=== PATIENT | female | born 1960 | race Caucasian/White ===

== ENCOUNTER 2016-08-16 09:16 | Emergency (ER) | payer OTHER ==
[~2016-08-16] VITALS: Ht 167.6 cm; Wt 88.0 kg
[~2016-08-16 09:16] MED LIST: ALBU18HF IH; AMOX1TAB67 PO; AZIT250T94 PO; ENAL5TAB PO; HYD25 PO; OMEP20CA16 PO
[2016-08-16 09:23] VITALS: Ht 167.6 cm; Wt 88.0 kg
--- NOTE | 2016-08-16 09:58 | ERD ---
ER Documentation Chief Complaint Date/Time DATE: 08/16/16 TIME: 09:56 Chief Complaint Complains of a sore throat x 3 days HPI Patient is a 56-year-old female who presents to the ED with back pain, sore throat and cough for the last 3 days. Denies fever or chills. States that her cough is dry and nonproductive. Denies night sweats or hemoptysis. Denies history of asthma. Denies headache or dizziness or neck pain or neck stiffness. Denies abdominal pain, nausea, vomiting or diarrhea. States that her back pain has been on and off for the last month. Denies leg pain or leg swelling. Denies shortness of breath or difficulty breathing. Has not taken any medication for her symptoms. Denies recent travel or recent surgeries. ROS All systems reviewed and are negative except as per history of present illness. Medications Home Meds Active Scripts Acetaminophen* (Tylophen*) 500 Mg Capsule, 1 CAP PO Q6H Y for PAIN AND OR ELEVATED TEMP, #20 CAP Prov:JORDAN MILLER PA-C 08/16/16 Amoxicillin/Potassium Clav (Amox-Clav 875-125 mg Tablet) 875-125 mg Tab, 1 TAB PO BID for 7 Days, #14 TAB Prov:JORADN MILLER PA-C 08/16/16 Amoxicillin-Clavulanate K* (Augmentin*) 500 Mg Tab, 500 MG PO BID for 7 Days, TAB Prov:DALTON STEPHENSON NP 05/15/15 Azithromycin* (Zithromax*) 250 Mg Tablet, 250 MG PO DAILY for 4 Days, TAB Prov:JAMAAL CASAREZ MD 02/07/15 Reported Medications Albuterol Sulfate* (Ventolin HFA*) 18 Gm Hfa.aer.ad, 2 PUFF IH Q4H Y for WHEEZING AND RESP DISTRESS, EA 02/07/15 Omeprazole* (Omeprazole*) 20 Mg Capsule.dr, 20 MG PO DAILY, CAP 02/07/15 Enalapril Maleate* (Enalapril Maleate*) 5 Mg Tablet, 5 MG PO BID, TAB 10/07/13 Hydrochlorothiazide* (Hydrochlorothiazide*) 25 Mg Tab, 25 MG PO DAILY, TAB 10/07/13 Allergies Allergies: Coded Allergies: No Known Allergy (Unverified , 05/15/15) PMhx/Soc History of Surgery: No Anesthesia Reaction: No Hx Neurological Disorder: No Hx Respiratory Disorders: No Hx Cardiac Disorders: No Hx Psychiatric Problems: No Hx Miscellaneous Medical Probl: Yes (pneumonia) Hx Alcohol Use: No Hx Substance Use: No Hx Tobacco Use: No FmHx Family History: No coronary disease, No diabetes, No other Physical Exam Vitals Vital Signs Date Time Temp Pulse Resp B/P Pulse Ox O2 Delivery O2 Flow Rate FiO2 08/16/16 10:56 98.2 78 20 136/75 97 Room Air 08/16/16 09:23 98.1 83 20 132/83 95 Physical Exam GENERAL: Well-developed, well-nourished female. Appears in no acute distress. HEAD: Normocephalic, atraumatic. EYES: Pupils are equally reactive bilaterally. EOMs grossly intact. No conjunctival erythema. ENT: Moist mucous membranes. No uvula deviation. No kissing tonsils. No exudates. NECK: Supple. No lymphadenopathy or thyromegaly. No meningismus. negative kernig. negative brudinski. LUNG: Clear to auscultation bilaterally. No rhonchi, wheezing, rales or coarse breath sounds. No retractions or nasal flaring. No stridor. Speaking in full sentences. HEART: Regular rate and rhythm. No murmurs, rubs or gallops. ABDOMEN: No scars, ecchymosis or rashes noted. Soft, nontender, and nondistended. Positive bowel sounds in all four quadrants. No rebound tenderness , no guarding. (-) McBurneys point tenderness. No CVA tenderness. BACK: No midline tenderness. Extremities: Equal pulses bilaterally. No peripheral clubbing, cyanosis or edema. No unilateral leg swelling. NEUROLOGIC: Alert and oriented. Moving all four extremities. 5/5 strength in all extremities. Normal speech. Steady gait. SKIN: Normal color. Warm and dry. No rashes or lesions. Capillary refill < 2 seconds Procedures/MDM ER COURSE: I kept the patient and/or family informed of laboratory and diagnostic imaging results throughout the emergency room course. IMAGING STUDIES [place] [id number] Radiology Main Line: [phone] DIAGNOSTIC IMAGING REPORT Patient: ROMINA DAVILA : 1960 Age: 56 Sex: F MR #: [id number] DOS: 08/16/16 0947 Ordering MD: JORDAN MILLER PA-C Location: [facility] Room/Bed: PROCEDURE: XR Chest. CLINICAL INDICATION: chest pain, cough TECHNIQUE: Single frontal view of the chest was obtained COMPARISON: 05/15/2015 FINDINGS: The heart and mediastinum are within normal limits. There is a persistent right lower lobe infiltrate. There is a small left upper lobe calcified granuloma. There is no pleural effusion or pneumothorax. RPTAT: AA IMPRESSION: Persistent and slightly worsening right lower lobe infiltrate. Since this has been present for at least 3 months, further evaluation with a CT is recommended to rule out underlying mass. .Tejas Tapia MD, MD Date Time Electronically viewed and signed by .Tejas Tapia MD, MD on 08/16/2016 10: 21 .S/ CC: JORDAN MILLER PA-C MEDICAL DECISION MAKING: This is a 56-year-old female who presents with cough, sore throat and back pain. Vital signs were reviewed. Patient is afebrile. Patient is not hypoxic. Patient is not toxic or ill-appearing. X-ray is read by radiologist shows pneumonia. However no imaging study was done 3 months prior and no x-ray to compare with. However her x-ray was done 1 year ago. At this time patient can be treated outpatientLY and to follow-up with her specialist that she already has for further evaluation such as CT scan. I consulted with Dr. Casarez regarding this patient who stated that no other imaging studies is necessary at this time. I explained to patient that she should continue following up with her specialist for further evaluation. Patient does not show signs of respiratory distress. Patient speaking in full sentences at this time patient does not need to be admitted. Low suspicion for PE, pneumothorax, ACS, epiglottitis, obstruction, TB, pertussis, meningitis, sepsis. Low suspicion for ACS, PE, AAA, dissection, DVT DISCHARGE: At this time, patient is stable for discharge and outpatient management with no new complaints during the ER course. Patient was sent home with Augmentin and a copy of imaging report and Tylenol. Patient will be discharged home with instructions to recheck for new or worsening symptoms such as fever, nausea, weakness, LOC and to follow up with primary care in the next 1-2 days. Patient was advised to return to the ER for any new or worsening symptoms. Plan was discussed and patient and/or family understands and agrees. Home instructions were given. Departure Diagnosis: Primary Impression: Pneumonia Pneumonia type: due to unspecified organism Laterality: right Lung location : lower lobe of lung Qualified Code: J18.1 - Pneumonia of right lower lobe due to infectious organism Condition: Stable JORDAN MILLER PA-C Aug 16, 2016 09:58
--- NOTE | 2016-08-16 10:22 | RADRPT ---
PROCEDURE: XR Chest. CLINICAL INDICATION: chest pain, cough TECHNIQUE: Single frontal view of the chest was obtained COMPARISON: 05/15/2015 FINDINGS: The heart and mediastinum are within normal limits. There is a persistent right lower lobe infiltrate. There is a small left upper lobe calcified granuloma. There is no pleural effusion or pneumothorax. RPTAT: AA IMPRESSION: Persistent and slightly worsening right lower lobe infiltrate. Since this has been present for at l east 3 months, further evaluation with a CT is recommended to rule out underlying mass. .Tejas Tapia MD, MD Date Time Electronically viewed and signed by .Tejas Tapia MD, MD on 08/16/2016 10:21 .S/
[2016-08-16] MEDS ORDERED: AMOX1TAB10 PO (10:35)
[2016-08-16] MEDS ORDERED: ACET500C5 PO (10:36)
[2016-08-16 10:56] VITALS: BP 136/75; PULSE 78; RESP 20; TEMP 98.2
== END 2016-08-16 10:57 | disposition home or self-care (01) ==
LOC: FTE 09:16
DX: J18.1 Lobar pneumonia, unspecified organism (principal)
CPT/HCPCS: 71010

== ENCOUNTER 2016-09-26 11:29 | Inpatient (IN) | payer OTHER ==
[~2016-09-26] VITALS: Ht 162.6 cm; Wt 89.0 kg
[~2016-09-26 11:29] MED LIST changes: +ACET500C5 PO; +AMOX1TAB10 PO; +ENAL10TA PO; +FAMO-96 PO
--- NOTE | 2016-09-26 12:16 | ERA ---
ER Documentation Chief Complaint Date/Time DATE: 09/26/16 TIME: 12:16 Chief Complaint CHEST PAIN AND UPPER BACK PAIN X 3 DAYS ALSO SOB HPI The patient is a 56-year-old female, presenting persistent dry cough, chills for the last 3 days. She had history of recurrent pneumonia, last treated for pneumonia was on August 16, 2016. She has multiple recurrent pneumonia within the last 4 years, denies neck pain, dyspnea, complaints of left-sided chest pain was with coughing and movement that is radiating to the left upper back. She denies abdominal pain, vomiting, dysuria, diarrhea. She does not smoke nor drink Past medical history: Hypertension Past surgical history: None ROS All systems reviewed and are negative except as per history of present illness. Medications Home Meds Reported Medications Chlorthalidone* (Chlorthalidone*) 25 Mg Tablet, 25 MG PO DAILY, TAB 09/26/16 Omeprazole* (Omeprazole*) 20 Mg Capsule.dr, 20 MG PO DAILY, #30 CAP 09/26/16 Enalapril Maleate* (Enalapril Maleate*) 10 Mg Tablet, 10 MG PO DAILY, TAB 09/26/16 Discontinued Reported Medications Albuterol Sulfate* (Ventolin HFA*) 18 Gm Hfa.aer.ad, 2 PUFF IH Q4H Y for WHEEZING AND RESP DISTRESS, EA 02/07/15 Omeprazole* (Omeprazole*) 20 Mg Capsule.dr, 20 MG PO DAILY, CAP 02/07/15 Enalapril Maleate* (Enalapril Maleate*) 5 Mg Tablet, 5 MG PO BID, TAB 10/07/13 Hydrochlorothiazide* (Hydrochlorothiazide*) 25 Mg Tab, 25 MG PO DAILY, TAB 10/07/13 Discontinued Scripts Acetaminophen* (Tylophen*) 500 Mg Capsule, 1 CAP PO Q6H Y for PAIN AND OR ELEVATED TEMP, #20 CAP Prov:JORDAN MILLER PA-C 08/16/16 Amoxicillin/Potassium Clav (Amox-Clav 875-125 mg Tablet) 875-125 mg Tab, 1 TAB PO BID for 7 Days, #14 TAB Prov:JORDAN MILLER PA-C 08/16/16 Amoxicillin-Clavulanate K* (Augmentin*) 500 Mg Tab, 500 MG PO BID for 7 Days, TAB Prov:DALTON STEPHENSON NP 05/15/15 Azithromycin* (Zithromax*) 250 Mg Tablet, 250 MG PO DAILY for 4 Days, TAB Prov:JAMAAL CASAREZ MD 02/07/15 Allergies Allergies: Coded Allergies: No Known Allergy (Unverified , 09/26/16) PMhx/Soc History of Surgery: No Anesthesia Reaction: No Hx Neurological Disorder: No Hx Respiratory Disorders: No Hx Cardiac Disorders: No Hx Psychiatric Problems: No Hx Miscellaneous Medical Probl: Yes (pneumonia) Hx Alcohol Use: No Hx Substance Use: No Hx Tobacco Use: No Physical Exam Vitals Vital Signs Date Time Temp Pulse Resp B/P Pulse Ox O2 Delivery O2 Flow Rate FiO2 09/26/16 14:00 80 16 110/74 98 Room Air 09/26/16 12:00 97.8 75 14 132/93 97 Room Air 09/26/16 11:34 97.8 78 18 124/74 94 Physical Exam Const: No acute distress. Head: Atraumatic. Eyes: Normal Conjunctiva. ENT: Normal External Ears, Nose and Mouth. Neck: Full range of motion. No meningismus. Resp: Clear to auscultation bilaterally. Cardio: Regular rate and rhythm. Abd: Soft, non distended, normal bowel sounds, non tender. Skin: No petechiae or rashes. Back: No midline or flank tenderness. Ext: No cyanosis, or edema. Neur: Awake and alert. No focal deficit Psych: Normal Mood and Affect. Result Diagram: 09/26/16 1225 09/26/16 1225 Results 24 hrs Laboratory Tests Test 09/26/16 12:25 White Blood Count 7.110^3/ul Red Blood Count 4.6810^6/ul Hemoglobin 14.2g/dl Hematocrit 42.0% Mean Corpuscular Volume 89.7fl Mean Corpuscular Hemoglobin 30.3pg Mean Corpuscular Hemoglobin Concent 33.8g/dl Red Cell Distribution Width 12.5% Platelet Count 49602^3/UL Mean Platelet Volume 10.4fl Neutrophils % 53.1% Lymphocytes % 35.2% Monocytes % 8.3% Eosinophils % 2.3% Basophils % 0.8% Nucleated Red Blood Cells % 0.0/100WBC Neutrophils # 3.810^3/ul Lymphocytes # 2.510^3/ul Monocytes # 0.610^3/ul Eosinophils # 0.210^3/ul Basophils # 0.110^3/ul Nucleated Red Blood Cells # 0.010^3/ul Prothrombin Time 11.6Sec Prothrombin Time Ratio 0.9 INR International Normalized Ratio 0.85 Activated Partial Thromboplast Time 28.4Sec Sodium Level 144mmol/L Potassium Level 3.8mmol/L Chloride Level 99mmol/L Carbon Dioxide Level 28mmol/L Anion Gap 21 Blood Urea Nitrogen 11mg/dl Creatinine 0.52mg/dl Glucose Level 115mg/dl Calcium Level 10.7mg/dl Troponin I < 0.012ng/ml Current Medications Medications (Trade) Dose Ordered Sig/Lise Route PRN Reason Start Time Stop Time Status Last Admin Dose Admin Levofloxacin/ Dextrose (Levaquin 750 Mg/ D5W 150 ml (Pmx)) 150 ml @ 100 mls/hr ONCE ONCE IVPB 09/26/16 14:30 09/26/16 15:59 DC 09/26/16 14:59 IV Flush (NS 3 ml) 3 ml PER PROTOCOL IV 09/26/16 15:30 Acetaminophen (Tylenol Tab) 650 mg Q6H PRN PO PAIN LEVEL 1-3 OR FEVER 09/26/16 15:30 Acetaminophen/ Hydrocodone Bitart ([place] (5/325)) 1 tab Q6H PRN PO MODERATE PAIN LEVEL 4-6 09/26/16 15:30 Morphine Sulfate (morphine) 2 mg Q4H PRN IV SEVERE PAIN LEVEL 7-10 09/26/16 15:30 Docusate Sodium (Colace) 100 mg Q12H PRN PO CONSTIPATION 09/26/16 15:30 Magnesium Hydroxide (Milk Of Mag) 30 ml DAILY PRN PO CONSTIPATION 09/26/16 15:30 Bisacodyl (Dulcolax) 5 mg DAILY PRN PO CONSTIPATION 09/26/16 15:30 Enoxaparin Sodium (Lovenox) 40 mg DAILY SC 09/27/16 09:00 Chlorthalidone (Hygroton) 25 mg DAILY PO 09/27/16 09:00 Enalapril Maleate (Vasotec) 10 mg DAILY PO 09/27/16 09:00 Pantoprazole (Protonix Tab) 40 mg DAILY@06 PO 09/27/16 06:00 Levofloxacin (Levaquin) 750 mg DAILY@06 PO 09/27/16 06:00 Sodium Chloride (Nacl 3% For Inhalation) 5 ml ONCE ONCE NEB 09/26/16 16:30 09/26/16 16:31 Procedures/MDM [place] [id number] Radiology Main Line: [phone] DIAGNOSTIC IMAGING REPORT Patient: ROMINA DAVILA : 1960 Age: 56 Sex: F MR #: [id number] DOS: 09/26/16 1214 Ordering MD: LOLIS SIMON MD Location: E/R Room/Bed: PROCEDURE: Chest x-ray CLINICAL INDICATION: Chest pain TECHNIQUE: Chest single view COMPARISON: 08/16/2016 FINDINGS: The heart is normal in size. The pulmonary vessels are normal in caliber. There is persistent but improving right lower lobe patchy infiltrate / pneumonia. Reticular scarring remains in the left lower lung. No new infiltrates are identified. Costophrenic angles sharp. Bony thorax is unremarkable. IMPRESSION: 1. Persistent but improving patchy infiltrate / pneumonia in the right lower lobe. 2. Reticular scarring/atelectasis left lower lobe RPTAT: HH .Arnie Whitt MD, MD Date Time Electronically viewed and signed by .Arnie Whitt MD, MD on 09/26/2016 12:46 .W/ CC: LOLIS SIMON MD [place] [address] Radiology Main Line: [phone] DIAGNOSTIC IMAGING REPORT Patient: ROMINA DAVILA : 1960 Age: 56 Sex: F MR #: [id number] DOS: 09/26/16 1222 Ordering MD: LOLIS SIMON MD Location: E/R Room/Bed: PROCEDURE: CT Chest without contrast. CLINICAL INDICATION: Chest pain. Recurrent pneumonia. TECHNIQUE: CT scan of the chest without contrast was performed on a multidetector high-resolution CT scanner. Coronal and sagittal reformatted images were obtained from the axial source images. The total exam CTDI equals 13.64 mGy and the total exam DLP equals 501.78 mGy-cm. One or more of the following dose reduction techniques were used: Automated exposure control. Adjustment of the mA and/or kV according to patient size. Use of iterative reconstruction technique. COMPARISON: Chest x-ray 08/16/2016 FINDINGS: There is approximately 3.3 x 2.9 cm round mass-like consolidation in the central right middle lobe with more peripheral triangular-shaped subsegmental atelectasis. Subsegmental atelectasis is noted in the anterobasal left lower lobe. There is a cluster of high density nodules in the left upper lobe. Scattered pleural parenchymal scarring is seen in bilateral lungs. The mediastinum is unremarkable without evidence for mass or lymphadenopathy. The vascular structures of the mediastinum are normal in course and caliber. Aortic vascular calcifications and coronary artery calcifications are present. The heart size is normal without evidence for pericardial thickening or effusion. The axillary regions, subpectoral regions, and supraclavicular regions are all unremarkable. Imaging obtained through the upper abdomen reveals no acute abnormality. There is hepatomegaly with fatty infiltration. There is a punctate 3 mm nonobstructing stone in the lower pole right kidney. The surrounding osseous structures are remarkable for degenerative spondylosis of the spine. No osteolytic or osteoblastic lesion is detected. IMPRESSION: The study is somewhat limited due to significant breathing artifacts and lack of IV contrast. 1. Approximately 3.3 x 2.9 cm round lobulated mass-like consolidation in the central right middle lobe with post obstructive peripheral subsegmental atelectasis. Recommend bronchoscopy evaluation. 2. Scattered bilateral pleural parenchymal scarring. Subsegmental atelectasis in the left lung base anteriorly. 3. Cluster of small nodules in the periphery of the left upper lobe. 4. Hepatomegaly with fatty infiltration. 5. Punctate nonobstructing right renal stone. RPTAT: BB .Zeenat Quesada MD, MD Date Time Electronically viewed and signed by .Zeenat Quesada MD, MD on 09/26/2016 13:41 .O/ CC: LOLIS SIMON MD EKG: At 11:41 AM read by emergency physician Rate/Rhythm: Normal Sinus Rhythm 79 beats/min QRS, ST, T-waves: No ST elevation, no T inversion Impression: Normal EKG EKG: At 12:23 AM read by emergency physician Rate/Rhythm: Normal Sinus Rhythm 80 beats/min QRS, ST, T-waves: No ST elevation, no T inversion Impression: Normal EKG MEDICAL MAKING DECISION: The patient is a 56-year-old female, presenting with frequent pneumonia, acute right middle lobe lung mass, left upper lobe multiple nodules. She was treated with Levaquin IV. She would need to be admitted for further evaluation of the lung mass and nodules and bronchoscopy The differential diagnoses considered include but are not limited to recurrent pneumonia, empyema, malignancy, pneumothorax Departure Diagnosis: Primary Impression: Pneumonia Additional Impressions: Mass of right lung Nodule of left lung Condition: Stable Comments I discussed the findings with the patient. I discussed the patient with the on- call hospitalist Dr. Banda who was made aware of the lab, the treatment, the patient condition. The patient is admitted to [facility] at 3:15 pm LOLIS SIMON MD Sep 26, 2016 12:16
[2016-09-26 12:34] LABS: BASOPHIL # 0.1 10^3/ul (0.0-0.1); BASOPHILS % 0.8 % (0.0-2.0); EOSINOPHILS # 0.2 10^3/ul (0.0-0.5); EOSINOPHILS % 2.3 % (0.0-7.0); HEMOGLOBIN 14.2 g/dl (12.0-16.0); LYMPHOCYTES # 2.5 10^3/ul (0.8-2.9); LYMPHOCYTES % 35.2 % (15.0-51.0); MEAN CORPUSCULAR HEMOGLOBIN 30.3 pg (29.0-33.0); MEAN CORPUSCULAR HGB CONC 33.8 g/dl (32.0-37.0); MEAN CORPUSCULAR VOLUME 89.7 fl (82.0-101.0); MEAN PLATELET VOLUME 10.4 fl (7.4-10.4); MONOCYTE # 0.6 10^3/ul (0.3-0.9); MONOCYTES % 8.3 % (0.0-11.0); NEUTROPHIL # 3.8 10^3/ul (1.6-7.5); NEUTROPHILS % 53.1 % (39.0-77.0); PLATELET COUNT 240 10^3/UL (140-415); RED BLOOD COUNT 4.68 10^6/ul (4.20-5.40); RED CELL DISTRIBUTION WIDTH 12.5 % (11.5-14.5); WHITE BLOOD COUNT 7.1 10^3/ul (4.8-10.8)
--- NOTE | 2016-09-26 12:46 | RADRPT ---
PROCEDURE: Chest x-ray CLINICAL INDICATION: Chest pain TECHNIQUE: Chest single view COMPARISON: 08/16/2016 FINDINGS: The heart is normal in size. The pulmonary vessels are normal in caliber. There is persistent but i mproving right lower lobe patchy infiltrate / pneumonia. Reticular scarring remains in the left low er lung. No new infiltrates are identified. Costophrenic angles sharp. Bony thorax is unremarkabl e. IMPRESSION: 1. Persistent but improving patchy infiltrate / pneumonia in the right lower lobe. 2. Reticular scarring/atelectasis left lower lobe RPTAT: HH .Arnie Whitt MD, MD Date Time Electronically viewed and signed by .Arnie Whitt MD, on 09/26/2016 12:46 .W/
[2016-09-26 12:49] LABS: INR 0.85; PROTIME 11.6 Sec (12.2-14.2); PT RATIO 0.9
[2016-09-26 12:50] LABS: PARTIAL THROMBOPLASTIN TIME 28.4 Sec (25.0-35.0)
[2016-09-26 12:53] LABS: ANION GAP 21 (8-16); BLOOD UREA NITROGEN 11 mg/dl (7-20); CALCIUM 10.7 mg/dl (8.4-10.2); CARBON DIOXIDE 28 mmol/L (21-31); CHLORIDE 99 mmol/L (97-110); CREATININE 0.52 mg/dl (0.44-1.00); GLUCOSE 115 mg/dl (70-220); POTASSIUM 3.8 mmol/L (3.5-5.1); SODIUM 144 mmol/L (135-144)
[2016-09-26 13:10] LABS: TROPONIN-I < 0.012 ng/ml (0.00-0.12)
--- NOTE | 2016-09-26 13:42 | RADRPT ---
PROCEDURE: CT Chest without contrast. CLINICAL INDICATION: Chest pain. Recurrent pneumonia. TECHNIQUE: CT scan of the chest without contrast was performed on a multidetector high-resolution CT scanner. Coronal and sagittal reformatted images were obtained from the axial source images. The total exam CTDI equals 13.64 mGy and the total exam DLP equals 501.78 mGy-cm. One or more of the following dose reduction techniques were used: Automated exposure control. Adjustment of the mA and/or kV according to patient size. Use of iterative reconstruction technique. COMPARISON: Chest x-ray 08/16/2016 FINDINGS: There is approximately 3.3 x 2.9 cm round mass-like consolidation in the central right middle lobe w ith more peripheral triangular-shaped subsegmental atelectasis. Subsegmental atelectasis is noted in the anterobasal left lower lobe. There is a cluster of high density nodules in the left upper lobe . Scattered pleural parenchymal scarring is seen in bilateral lungs. The mediastinum is unremarkable without evidence for mass or lymphadenopathy. The vascular structur es of the mediastinum are normal in course and caliber. Aortic vascular calcifications and coronary artery calcifications are present. The heart size is normal without evidence for pericardial thick ening or effusion. The axillary regions, subpectoral regions, and supraclavicular regions are all unremarkable. Imagin g obtained through the upper abdomen reveals no acute abnormality. There is hepatomegaly with fatty infiltration. There is a punctate 3 mm nonobstructing stone in the lower pole right kidney. The gretchen rounding osseous structures are remarkable for degenerative spondylosis of the spine. No osteolytic or osteoblastic lesion is detected. IMPRESSION: The study is somewhat limited due to significant breathing artifacts and lack of IV contrast. 1. Approximately 3.3 x 2.9 cm round lobulated mass-like consolidation in the central right middle l obe with post obstructive peripheral subsegmental atelectasis. Recommend bronchoscopy evaluation. 2. Scattered bilateral pleural parenchymal scarring. Subsegmental atelectasis in the left lung bas e anteriorly. 3. Cluster of small nodules in the periphery of the left upper lobe. 4. Hepatomegaly with fatty infiltration. 5. Punctate nonobstructing right renal stone. RPTAT: BB .Zeenat Quesada MD, MD Date Time Electronically viewed and signed by .Zeenat Quesada MD, on 09/26/2016 13:41 .O/
[2016-09-26] MEDS ORDERED: LEVOFLOXACIN 750MG/D5W (PMX) 150 ML IVPB ONE (14:30)
[2016-09-26] MEDS ORDERED: ENAL10TA PO (14:55)
[2016-09-26] MEDS ORDERED: OMEP20CA16 PO (14:55)
[2016-09-26] MEDS ORDERED: CHLO25TA13 PO (14:57)
--- NOTE | 2016-09-26 15:25 | HP ---
Date/Time of Note Date/Time of Note DATE: 09/26/16 TIME: 15:25 Assessment/Plan VTE Prophylaxis VTE Prophylaxis Intervention: SCD's Lines/Catheters IV [facility] Saline Lock Assessment/Plan Assessment/Plan 56 yo nonsmoking F presents with SOB in setting of ?pneumonia episode last month. Lung imaging with R sided lung lesion origin of which is unclear. Differential includes infectious v malignant origin. PLAN empiric abx with PO levoflox pulm consult for bronch PRN duonebs infectious w/u: sputum cultures, strep urine Ag. imaging not consistent with classic TB though cannot rule out respiratory isolate and 3 serial sputum AFBs ordered defer fungal Ag testing pending pum eval cont home BP and GERD meds DVT prophx regular diet but NPO at [place] for possible bronch HPI/ROS Admit Date/Time Admit Date/Time Hx of Present Illness CC SOB HPI 56 yo F with pmhx HTN, lifelong nonsmoker presents with several days of SOB and chills. Of note she presented ~6 weeks ago for cough. CXR at that time with ? able R sided infiltrate v lesion and f/u imaging with CT in 3 mos was advised. + nonproductive cough. Pt denies fevers. Does not report weight loss. PMH/Family/Social Past Medical History HTN, GERD Social History lives in the community Smoking Status: Never smoker Exam/Review of Systems Vital Signs Vitals Vital Signs Date Time Temp Pulse Resp B/P Pulse Ox O2 Delivery O2 Flow Rate FiO2 09/26/16 14:00 80 16 110/74 98 Room Air 09/26/16 12:00 97.8 Exam Exam nad, sitting up in bed EOMI MMM no mrg lungs clear-->no crackles or wheezing abd soft no rashes no le edema labs reviewed. WBCs nl, Cr nl CXR with ?R sided infiltrate and scarring NCCT chest with R sided lesion, etio unclear Labs Result Diagram: 09/26/16 1225 09/26/16 1225 Medications Medications Current Medications Levofloxacin/ Dextrose (Levaquin 750 Mg/ D5W 150 ml (Pmx)) 150 ml @ 100 mls/hr ONCE ONCE IVPB Last administered on 09/26/16t 14:59; Admin Dose 100 MLS/HR; Start 09/26/16 at 14:30; Stop 09/26/16 at 15:59 BRADLEY LEARY MD Sep 26, 2016 15:25
[2016-09-26] MEDS ORDERED: NACL 0.9% 3 ML SYG IV SCH (15:30)
[2016-09-26] MEDS ORDERED: BISACODYL (EC) 5 MG TAB PO PRN (15:30)
[2016-09-26] MEDS ORDERED: DOCUSATE SODIUM 100 MG CAP PO PRN (15:30)
[2016-09-26] MEDS ORDERED: MAGNESIUM HYDROXIDE 30ML CUP PO PRN (15:30)
[2016-09-26] MEDS ORDERED: HYDROCODONE/APAP (5/325) TAB PO PRN (15:30)
[2016-09-26] MEDS ORDERED: morphine 2 MG INJ IV PRN (15:30)
[2016-09-26] MEDS ORDERED: ACETAMINOPHEN 325 MG TAB PO PRN (15:30)
[2016-09-26] MEDS ORDERED: NACL 3% FOR INHALATION 15 ML NEBU NEB ONE (16:30)
[2016-09-26] MEDS ORDERED: ALBUTEROL/IPRATROPIUM (NEB) 3 ML AMP HHN PRN (17:00)
[2016-09-26 19:03] LABS: CREATINE KINASE 107 IU/L (23-200)
[2016-09-26 19:15] VITALS: TEMP 98.1
[2016-09-26 19:17] LABS: CK-MB 0.68 ng/ml (0.0-2.4)
[2016-09-26 19:18] LABS: TROPONIN-I < 0.012 ng/ml (0.00-0.12)
[2016-09-26 21:50] VITALS: PULSE 75
[2016-09-26 22:00] VITALS: Ht 162.6 cm; Wt 89.0 kg
[2016-09-27] VITALS (9 sets, daily range): BP systolic 107–135; BP diastolic 56–80; PULSE 69–75; RESP 17–19
[2016-09-27 01:06] LABS: CREATINE KINASE 86 IU/L (23-200)
[2016-09-27 01:16] LABS: CK-MB 0.63 ng/ml (0.0-2.4)
[2016-09-27 01:30] LABS: TROPONIN-I < 0.012 ng/ml (0.00-0.12)
[2016-09-27] MEDS: LEVOFLOXACIN 750 MG TABLET PO SCH (05:37)
[2016-09-27] MEDS: PANTOPRAZOLE (EC) 40 MG TAB PO SCH (05:37)
[2016-09-27 06:37] LABS: BASOPHIL # 0.1 10^3/ul (0.0-0.1); BASOPHILS % 0.9 % (0.0-2.0); EOSINOPHILS # 0.2 10^3/ul (0.0-0.5); EOSINOPHILS % 2.7 % (0.0-7.0); HEMATOCRIT 42.1 % (37.0-47.0); LYMPHOCYTES # 2.2 10^3/ul (0.8-2.9); LYMPHOCYTES % 33.9 % (15.0-51.0); MEAN CORPUSCULAR HEMOGLOBIN 29.9 pg (29.0-33.0); MEAN CORPUSCULAR HGB CONC 33.3 g/dl (32.0-37.0); MEAN PLATELET VOLUME 10.7 fl (7.4-10.4); MONOCYTE # 0.5 10^3/ul (0.3-0.9); MONOCYTES % 8.2 % (0.0-11.0); NEUTROPHIL # 3.4 10^3/ul (1.6-7.5); PLATELET COUNT 234 10^3/UL (140-415); RED BLOOD COUNT 4.68 10^6/ul (4.20-5.40); RED CELL DISTRIBUTION WIDTH 12.7 % (11.5-14.5); WHITE BLOOD COUNT 6.4 10^3/ul (4.8-10.8)
[2016-09-27 07:09] LABS: ALBUMIN 4.3 g/dl (3.3-4.9); ALBUMIN/GLOBULIN RATIO 1.26; BILIRUBIN,INDIRECT 0.2 mg/dl (0-1.1); BILIRUBIN,TOTAL 0.2 mg/dl (0.2-1.3); CALCIUM 10.1 mg/dl (8.4-10.2); CREATININE 0.63 mg/dl (0.44-1.00); POTASSIUM 3.7 mmol/L (3.5-5.1); TOTAL PROTEIN 7.7 g/dl (6.1-8.1)
[2016-09-27] MEDS: CHLORTHALIDONE 25 MG TAB PO SCH (09:49)
[2016-09-27] MEDS: ENALAPRIL 10 MG TAB PO SCH (09:50)
[2016-09-27] MEDS: ENOXAPARIN 40 MG/0.4 ML SYG SC SCH (09:52)
--- NOTE | 2016-09-27 11:09 | CONS ---
Date/Time of Note Date/Time of Note DATE: 09/27/16 TIME: 11:05 Assessment/Plan Assessment/Plan Additional Assessment/Plan Chest x-ray was reviewed from yesterday which is essentially unremarkable except for slight prominence of interstitial markings in lung bases bilaterally. CT chest was reviewed which is showing masslike lobulated lesion involving the right middle lobe with some element of post obstruction. Assessment recommendations; 1. Patient admitted with nonspecific chest pain discovered to have lung mass on CT imaging of the chest. Patient however is well aware of it for the last 3 years at least. Underlying malignancy is highly unlikely. Patient will need to have a bronchoscopy performed. The procedure were discussed with her in detail and she has agreed to it. I will schedule that for tomorrow morning. Meanwhile continue current treatment. Consultation Date/Type/Reason Admit Date/Time Date of Consultation: Sep 27, 2016 Type of Consultation: Pulmonary Reason for Consultation Pulmonary consultation requested for evaluation of lung mass. History of presenting any; she is a pleasant 56-year-old lady who came to the emergency room with complaints of nonspecific left-sided chest pain as well as back pain going on for the last several months increased by certain movements patient also had been having some cough for the last several months as well. According to patient she was diagnosed with a lung mass involving the right lung in 2013 and has had at least one CT scan of chest done before. Patient however denies having any further workup done including a bronchoscopy. Patient denies any shortness of breath. Any fever chills or weight loss. Past medical history; unremarkable. Next Medications; reviewed. Allergies; none. Social history; patient never smoked. Family history; patient is single she has 9 children. No show any malignancy in the family. Occupation she; patient is a housewife. Review of systems; denies any headache, visual changes, sinus symptoms, complains of dull chest pain involving the left mid as well as left upper back increased by certain movements. Denies any wheezing, shortness of breath, sputum production, hemoptysis. Denies any abdominal pain, nausea vomiting. Denies any weight loss. Denies any edema, orthopnea, PND. Denies any GI or urinary symptoms. Denies any skin changes or any arthritis symptoms. General exam; middle-aged woman, awake alert currently in no distress. Social History Smoking Status: Never smoker Exam/Review of Systems Vital Signs Vitals Vital Signs Date Time Temp Pulse Resp B/P Pulse Ox O2 Delivery O2 Flow Rate FiO2 09/27/16 08:03 69 09/27/16 07:48 97.9 17 107/56 96 09/26/16 19:15 Room Air 09/26/16 16:57 21 Intake and Output 09/26/16 09/26/16 09/27/16 15:00 23:00 07:00 Intake Total 150 ml 400 ml Balance 150 ml 400 ml Exam HEENT exam; supple neck, no JVD. No lymphadenopathy. Midline trachea. No thyromegaly. Patient has fair dentition. No neck masses. Pupils are midsize and reactive to light. Chest exam; clear to auscultation. S1-S2 audible, no murmurs. Regular rhythm. There is reproducible tenderness involving the left mid chest wall anteriorly. Abdomen exam; soft, nontender. No organomegaly. Bowel sounds audible. Extremity exam; no peripheral edema. No clubbing. Pulses 1+ bilaterally. SCUBA DIVER exam; no focal deficit. Results Result Diagram: 09/27/1661709/27/1618 Results 24 hrs Laboratory Tests Test 09/26/16 12:25 09/26/16 18:20 09/27/16 00:36 09/27/16 06:18 White Blood Count 7.1 6.4 Red Blood Count 4.68 4.68 Hemoglobin 14.2 14.0 Hematocrit 42.0 42.1 Mean Corpuscular Volume 89.7 90.0 Mean Corpuscular Hemoglobin 30.3 29.9 Mean Corpuscular Hemoglobin Concent 33.8 33.3 Red Cell Distribution Width 12.5 12.7 Platelet Count 240 234 Mean Platelet Volume 10.4 10.7 H Neutrophils % 53.1 54.0 Lymphocytes % 35.2 33.9 Monocytes % 8.3 8.2 Eosinophils % 2.3 2.7 Basophils % 0.8 0.9 Nucleated Red Blood Cells % 0.0 0.0 Neutrophils # 3.8 3.4 Lymphocytes # 2.5 2.2 Monocytes # 0.6 0.5 Eosinophils # 0.2 0.2 Basophils # 0.1 0.1 Nucleated Red Blood Cells # 0.0 0.0 Prothrombin Time 11.6 L Prothrombin Time Ratio 0.9 INR International Normalized Ratio 0.85 Activated Partial Thromboplast Time 28.4 Sodium Level 144 143 Potassium Level 3.8 3.7 Chloride Level 99 102 Carbon Dioxide Level 28 26 Anion Gap 21 H 19 H Blood Urea Nitrogen 11 13 Creatinine 0.52 0.63 Glucose Level 115 111 Calcium Level 10.7 H 10.1 Troponin I < 0.012 < 0.012 < 0.012 Albumin 4.7 4.3 Creatine Kinase 107 86 Creatine Kinase Index 0.6 0.7 Creatinine Kinase MB (Mass) 0.68 0.63 Total Bilirubin 0.2 Direct Bilirubin 0.00 Indirect Bilirubin 0.2 Aspartate Amino Transf (AST/SGOT) 37 Alanine Aminotransferase (ALT/SGPT) 47 Alkaline Phosphatase 73 Total Protein 7.7 Globulin 3.40 H Albumin/Globulin Ratio 1.26 Medications Medications Current Medications Acetaminophen (Tylenol Tab) 650 mg Q6H PRN PO PAIN LEVEL 1-3 OR FEVER; Start at 15:30 Acetaminophen/ Hydrocodone Bitart ([place] (5/325)) 1 tab Q6H PRN PO MODERATE PAIN LEVEL 4-6; Start 09/26/16 at 15:30 Morphine Sulfate (morphine) 2 mg Q4H PRN IV SEVERE PAIN LEVEL 7-10 Last administered on 09/26/16 19:13; Admin Dose 2 MG; Start 09/26/16 at 15:30 Docusate Sodium (Colace) 100 mg Q12H PRN PO CONSTIPATION; Start 09/26/16 at 15: 30 Magnesium Hydroxide (Milk Of Mag) 30 ml DAILY PRN PO CONSTIPATION; Start at 15:30 Bisacodyl (Dulcolax) 5 mg DAILY PRN PO CONSTIPATION; Start 09/26/16 at 15:30 Enoxaparin Sodium (Lovenox) 40 mg DAILY SC Last administered on 09/27/16 09:52 ; Admin Dose 40 MG; Start 09/27/16 at 09:00 Chlorthalidone (Hygroton) 25 mg DAILY PO Last administered on 09/27/16 09:49; Admin Dose 25 MG; Start 09/27/16 at 09:00 Enalapril Maleate (Vasotec) 10 mg DAILY PO Last administered on 09/27/16 09:50 ; Admin Dose 10 MG; Start 09/27/16 at 09:00 Pantoprazole (Protonix Tab) 40 mg DAILY@06 PO Last administered on 09/27/16 05 :37; Admin Dose 40 MG; Start 09/27/16 at 06:00 Levofloxacin (Levaquin) 750 mg DAILY@06 PO Last administered on 09/27/16 05:37 ; Admin Dose 750 MG; Start 09/27/16 at 06:00 RUSSEL TARIQ Sep 27, 2016 11:09
--- NOTE | 2016-09-27 15:49 | PN ---
Date/Time of Note Date/Time of Note DATE: 09/27/16 TIME: 15:49 Assessment/Plan VTE Prophylaxis VTE Prophylaxis Intervention: SCD's Lines/Catheters [facility] Saline Lock Urinary Cath still in place: No Assessment/Plan Assessment/Plan 56 yo nonsmoking F presents with SOB in setting of ?pneumonia episode last month. Lung imaging with R sided lung lesion origin of which is unclear. Differential includes infectious v malignant origin. PLAN cont empiric abx with PO levoflox pulm consult for bronch-->planned for tomorrow or saturda PRN duonebs infectious w/u: sputum cultures, strep urine Ag. imaging not consistent with classic TB though cannot rule out respiratory isolate and 3 serial sputum AFBs ordered-->in process cont home BP and GERD meds DVT prophx regular diet but NPO at [place] for possible bronch Subjective 24 Hr Interval Summary Free Text/Dictation Pt tearful. Conceded about her lung lesion because a family member had lung cancer. Exam/Review of Systems Vital Signs Vitals Vital Signs Date Time Temp Pulse Resp B/P Pulse Ox O2 Delivery O2 Flow Rate FiO2 09/27/16 12:41 75 09/27/16 09:40 123/67 09/27/16 07:48 97.9 17 96 09/26/16 19:15 Room Air 09/26/16 16:57 21 Intake and Output 09/26/16 09/26/16 09/27/16 15:00 23:00 07:00 Intake Total 150 ml 400 ml Balance 150 ml 400 ml Exam nad no mrg lungs clear abd soft no rashes sputum culture prelim NRF Results Result Diagram: 09/27/16 0618 09/27/16 0618 Results 24 hrs Laboratory Tests Test 09/26/16 18:20 09/27/16 00:36 09/27/16 06:18 Creatine Kinase 107 86 Creatine Kinase Index 0.6 0.7 Creatinine Kinase MB (Mass) 0.68 0.63 Troponin I < 0.012 < 0.012 White Blood Count 6.4 Red Blood Count 4.68 Hemoglobin 14.0 Hematocrit 42.1 Mean Corpuscular Volume 90.0 Mean Corpuscular Hemoglobin 29.9 Mean Corpuscular Hemoglobin Concent 33.3 Red Cell Distribution Width 12.7 Platelet Count 234 Mean Platelet Volume 10.7 H Neutrophils % 54.0 Lymphocytes % 33.9 Monocytes % 8.2 Eosinophils % 2.7 Basophils % 0.9 Nucleated Red Blood Cells % 0.0 Neutrophils # 3.4 Lymphocytes # 2.2 Monocytes # 0.5 Eosinophils # 0.2 Basophils # 0.1 Nucleated Red Blood Cells # 0.0 Sodium Level 143 Potassium Level 3.7 Chloride Level 102 Carbon Dioxide Level 26 Anion Gap 19 H Blood Urea Nitrogen 13 Creatinine 0.63 Glucose Level 111 Calcium Level 10.1 Total Bilirubin 0.2 Direct Bilirubin 0.00 Indirect Bilirubin 0.2 Aspartate Amino Transf (AST/SGOT) 37 Alanine Aminotransferase (ALT/SGPT) 47 Alkaline Phosphatase 73 Total Protein 7.7 Albumin 4.3 Globulin 3.40 H Albumin/Globulin Ratio 1.26 Medications Medications Current Medications Acetaminophen (Tylenol Tab) 650 mg Q6H PRN PO PAIN LEVEL 1-3 OR FEVER; Start at 15:30 Acetaminophen/ Hydrocodone Bitart ([place] (5/325)) 1 tab Q6H PRN PO MODERATE PAIN LEVEL 4-6; Start 09/26/16 at 15:30 Morphine Sulfate (morphine) 2 mg Q4H PRN IV SEVERE PAIN LEVEL 7-10 Last administered on 09/26/16 19:13; Admin Dose 2 MG; Start 09/26/16 at 15:30 Docusate Sodium (Colace) 100 mg Q12H PRN PO CONSTIPATION; Start 09/26/16 at 15: 30 Magnesium Hydroxide (Milk Of Mag) 30 ml DAILY PRN PO CONSTIPATION; Start at 15:30 Bisacodyl (Dulcolax) 5 mg DAILY PRN PO CONSTIPATION; Start 09/26/16 at 15:30 Enoxaparin Sodium (Lovenox) 40 mg DAILY SC Last administered on 09/27/16 09:52 ; Admin Dose 40 MG; Start 09/27/16 at 09:00 Chlorthalidone (Hygroton) 25 mg DAILY PO Last administered on 09/27/16 09:49; Admin Dose 25 MG; Start 09/27/16 at 09:00 Enalapril Maleate (Vasotec) 10 mg DAILY PO Last administered on 09/27/16 09:50 ; Admin Dose 10 MG; Start 09/27/16 at 09:00 Pantoprazole (Protonix Tab) 40 mg DAILY@06 PO Last administered on 09/27/16 05 :37; Admin Dose 40 MG; Start 09/27/16 at 06:00 Levofloxacin (Levaquin) 750 mg DAILY@06 PO Last administered on 09/27/16 05:37 ; Admin Dose 750 MG; Start 09/27/16 at 06:00 BRADLEY LEARY MD Sep 27, 2016 15:49
[2016-09-28 02:51] VITALS: BP 110/68; RESP 18
[2016-09-28] MEDS: LEVOFLOXACIN 750 MG TABLET PO SCH (05:32)
[2016-09-28] MEDS: PANTOPRAZOLE (EC) 40 MG TAB PO SCH (05:32)
[2016-09-28 08:00] VITALS: BP 125/75; RESP 18
[2016-09-28] MEDS: ENALAPRIL 10 MG TAB PO SCH (09:04)
[2016-09-28] MEDS: CHLORTHALIDONE 25 MG TAB PO SCH (09:04)
[2016-09-28] MEDS: ENOXAPARIN 40 MG/0.4 ML SYG SC SCH (09:05)
--- NOTE | 2016-09-28 09:18 | CONS ---
Date/Time of Note Date/Time of Note DATE: 09/28/16 TIME: 09:13 Assessment/Plan Assessment/Plan Additional Assessment/Plan atypical chest pain. RML atelectasis. continue current treatment. scheduled for bronchoscopy tomorrow. Consultation Date/Type/Reason Admit Date/Time Sep 26, 2016 at 15:17 Initial Consult Date 09/27/16 Type of Consultation: Pulmonary 24 HR Interval Summary Free Text/Dictation Doing well. GE: no distress, awake and alert. Exam/Review of Systems Vital Signs Vitals Vital Signs Date Time Temp Pulse Resp B/P Pulse Ox O2 Delivery O2 Flow Rate FiO2 09/28/16 02:51 98.1 76 18 110/68 96 09/27/16 14:10 Room Air 09/26/16 16:57 21 Intake and Output 09/27/16 09/27/16 09/28/16 15:00 23:00 07:00 Intake Total 480 ml 350 ml 240 ml Balance 480 ml 350 ml 240 ml Exam HEENT: wnl Chest: CTA ABD: normal Exremities: no edema ASSOCIATE DATA SCIENTIST: no deficit Constitutional: alert, distress, frail, non-verbal, obese, oriented, other, well developed Psych: anxiety, confusion, depression, nl mood/affect, no complaints, other, suicidal Head: atraumatic, hematomas, lacerations, normocephalic, other Eyes: EOMI, PERRL, fundi, disc, icteric, nl conjunctiva, nl lids, nl sclera, other ENMT: intubated, mucosa pink and moist, nl external ears & nose, nl lips & teeth, nl nasal mucosa & septum, other, tympanic membranes Neck: bruits, jvd, masses, non-tender, nuchal rigidity, other, supple, thyromegaly Respiratory: clear to auscultation, congested cough, crackles/rales, diminished breath sounds, intercostal retraction, labored breathing, normal air movement, other, respirations, tactile fremitus, wheezing Cardiovascular: S3, S4, bruits, diastolic murmur, edema, gallop, irregular rhythm, jugular venous distention (JVD), murmurs/extra sounds, nl pulses, other , regular rate and rhythm, rub, systolic murmur Genitourinary - Female: CMT, CVA tenderness, nl adnexae, nl external genitalia , other, uterus Musculoskeletal: joint tenderness, muscle tone, muscle weakness, nl extremities to inspection, nl gait and stance, other, range of motion, spine non -tender, swelling Extremities: calf tenderness, clubbing, cyanosis, edema, normal pulses, other, palpable cord, pitting pedal edema, tenderness Results Result Diagram: 09/27/1661709/27/16617 Medications Medications Current Medications Acetaminophen (Tylenol Tab) 650 mg Q6H PRN PO PAIN LEVEL 1-3 OR FEVER; Start at 15:30 Acetaminophen/ Hydrocodone Bitart ([place] (5/325)) 1 tab Q6H PRN PO MODERATE PAIN LEVEL 4-6; Start 09/26/16 at 15:30 Morphine Sulfate (morphine) 2 mg Q4H PRN IV SEVERE PAIN LEVEL 7-10 Last administered on 09/26/16 19:13; Admin Dose 2 MG; Start 09/26/16 at 15:30 Docusate Sodium (Colace) 100 mg Q12H PRN PO CONSTIPATION; Start 09/26/16 at 15: 30 Magnesium Hydroxide (Milk Of Mag) 30 ml DAILY PRN PO CONSTIPATION; Start at 15:30 Bisacodyl (Dulcolax) 5 mg DAILY PRN PO CONSTIPATION; Start 09/26/16 at 15:30 Enoxaparin Sodium (Lovenox) 40 mg DAILY SC Last administered on 09/28/16 09:05 ; Admin Dose 40 MG; Start 09/27/16 at 09:00 Chlorthalidone (Hygroton) 25 mg DAILY PO Last administered on 09/28/16 09:04; Admin Dose 25 MG; Start 09/27/16 at 09:00 Enalapril Maleate (Vasotec) 10 mg DAILY PO Last administered on 09/28/16 09:04 ; Admin Dose 10 MG; Start 09/27/16 at 09:00 Pantoprazole (Protonix Tab) 40 mg DAILY@06 PO Last administered on 09/28/16 05 :32; Admin Dose 40 MG; Start 09/27/16 at 06:00 Levofloxacin (Levaquin) 750 mg DAILY@06 PO Last administered on 09/28/16 05:32 ; Admin Dose 750 MG; Start 09/27/16 at 06:00 RUSSEL TARIQ 28, 2017 09:18
--- NOTE | 2016-09-28 12:45 | PN ---
Date/Time of Note Date/Time of Note DATE: 09/28/16 TIME: 12:44 Assessment/Plan VTE Prophylaxis VTE Prophylaxis Intervention: SCD's Lines/Catheters IV Catheter Type (from Nrs): Saline Lock Urinary Cath still in place: No Assessment/Plan Assessment/Plan 56 yo nonsmoking F presents with SOB in setting of ?pneumonia episode last month. Lung imaging with R sided lung lesion origin of which is unclear. Differential includes infectious v malignant origin. PLAN cont empiric abx with PO levoflox pulm consult for bronch-->planned for tomorrow PRN duonebs infectious w/u: sputum cultures, strep urine Ag. imaging not consistent with classic TB though cannot rule out respiratory isolate and 3 serial sputum AFBs ordered-->in process cont home BP and GERD meds DVT prophx regular diet but NPO at [place] for possible bronch Subjective 24 Hr Interval Summary Free Text/Dictation Pt tearful and anxious that she might have lung cancer despite reassurances that this is unlikely Exam/Review of Systems Vital Signs Vitals Vital Signs Date Time Temp Pulse Resp B/P Pulse Ox O2 Delivery O2 Flow Rate FiO2 09/28/16 08:00 98.8 68 18 125/75 96 09/27/16 14:10 Room Air 09/26/16 16:57 21 Intake and Output 09/27/16 09/27/16 09/28/16 15:00 23:00 07:00 Intake Total 480 ml 350 ml 240 ml Balance 480 ml 350 ml 240 ml Exam tearful at times no mrg lungs clear abd soft no rashes sputum culture with NRF AFB neg x 1 Results Result Diagram: 09/27/16 0618 09/27/1618 Medications Medications Current Medications Acetaminophen (Tylenol Tab) 650 mg Q6H PRN PO PAIN LEVEL 1-3 OR FEVER; Start at 15:30 Acetaminophen/ Hydrocodone Bitart ([place] (5/325)) 1 tab Q6H PRN PO MODERATE PAIN LEVEL 4-6; Start 09/26/16 at 15:30 Morphine Sulfate (morphine) 2 mg Q4H PRN IV SEVERE PAIN LEVEL 7-10 Last administered on 09/26/16t 19:13; Admin Dose 2 MG; Start 09/26/16 at 15:30 Docusate Sodium (Colace) 100 mg Q12H PRN PO CONSTIPATION; Start 09/26/16 at 15: 30 Magnesium Hydroxide (Milk Of Mag) 30 ml DAILY PRN PO CONSTIPATION; Start at 15:30 Bisacodyl (Dulcolax) 5 mg DAILY PRN PO CONSTIPATION; Start 09/26/16 at 15:30 Enoxaparin Sodium (Lovenox) 40 mg DAILY SC Last administered on 09/28/16 09:05 ; Admin Dose 40 MG; Start 09/27/16 at 09:00 Chlorthalidone (Hygroton) 25 mg DAILY PO Last administered on 09/28/16 09:04; Admin Dose 25 MG; Start 09/27/16 at 09:00 Enalapril Maleate (Vasotec) 10 mg DAILY PO Last administered on 09/28/16 09:04 ; Admin Dose 10 MG; Start 09/27/16 at 09:00 Pantoprazole (Protonix Tab) 40 mg DAILY@06 PO Last administered on 09/28/16 05 :32; Admin Dose 40 MG; Start 09/27/16 at 06:00 Levofloxacin (Levaquin) 750 mg DAILY@06 PO Last administered on 09/28/16 05:32 ; Admin Dose 750 MG; Start 09/27/16 at 06:00 BRADLEY LEARY MD Sep 28, 2016 12:45
[2016-09-28 14:00] VITALS: BP 101/64; RESP 18
[2016-09-28 19:39] LABS: TB-NIL <0.00 IU/mL
[2016-09-28 21:31] VITALS: BP 117/69; RESP 20
[2016-09-29] VITALS (11 sets, daily range): BP systolic 94–124; BP diastolic 52–89; PULSE 78–86; RESP 12–26
[2016-09-29] MEDS: PANTOPRAZOLE (EC) 40 MG TAB PO SCH (05:26)
[2016-09-29] MEDS: LEVOFLOXACIN 750 MG TABLET PO SCH (05:26)
[2016-09-29] MEDS ORDERED: LIDOCAINE 1% (MPF) 30 ML INJ ONE (07:18)
--- NOTE | 2016-09-29 07:38 | CONS ---
Date/Time of Note Date/Time of Note DATE: 09/29/16 TIME: 07:36 Assessment/Plan Assessment/Plan Additional Assessment/Plan Assessment and recommendations; 1. Patient admitted for nonspecific left sided chest pain discovered to have a right middle lobe atelectasis/lung mass on CT imaging of the chest. Patient aware of these findings at least for the last 3 years and according to her she has had CT scans of the chest done in the past but no further workup was done. Patient scheduled for bronchoscopy today. Currently there is no suspicion of any infectious process. Consultation Date/Type/Reason Admit Date/Time Sep 26, 2016 at 15:17 Initial Consult Date 09/27/16 Type of Consultation: Pulmonary 24 HR Interval Summary Free Text/Dictation Patient's condition is stable. Denies any coughing, chest pain has resolved. Denies any fever, sputum production. General exam; elderly woman, awake and alert, currently in no distress. Exam/Review of Systems Vital Signs Vitals Vital Signs Date Time Temp Pulse Resp B/P Pulse Ox O2 Delivery O2 Flow Rate FiO2 09/29/16 03:13 98.1 74 18 94/52 96 09/27/16 14:10 Room Air 09/26/16 16:57 21 Intake and Output 09/28/16 09/28/16 09/29/16 15:00 23:00 07:00 Intake Total 1060 ml 950 ml Balance 1060 ml 950 ml Exam HEENT exam; supple neck, no JVD. No lymphadenopathy. Midline trachea. No thyromegaly. Patient has multiple carious teeth. Chest exam; clear to auscultation. S1-S2 audible, no murmurs. Regular rhythm. There is very minimal left anterior and left posterior chest wall reproducible tenderness. Abdomen exam; soft, nondistended. No organomegaly. Bowel sounds audible. Extremity exam; no peripheral edema. ICT SECURITY SPECIALIST exam; no focal deficit. Results Result Diagram: 09/27/1661709/27/1618 Medications Medications Current Medications Acetaminophen (Tylenol Tab) 650 mg Q6H PRN PO PAIN LEVEL 1-3 OR FEVER; Start at 15:30 Acetaminophen/ Hydrocodone Bitart ([place] (5/325)) 1 tab Q6H PRN PO MODERATE PAIN LEVEL 4-6; Start 09/26/16 at 15:30 Morphine Sulfate (morphine) 2 mg Q4H PRN IV SEVERE PAIN LEVEL 7-10 Last administered on 09/26/16 19:13; Admin Dose 2 MG; Start 09/26/16 at 15:30 Docusate Sodium (Colace) 100 mg Q12H PRN PO CONSTIPATION; Start 09/26/16 at 15: 30 Magnesium Hydroxide (Milk Of Mag) 30 ml DAILY PRN PO CONSTIPATION; Start at 15:30 Bisacodyl (Dulcolax) 5 mg DAILY PRN PO CONSTIPATION; Start 09/26/16 at 15:30 Enoxaparin Sodium (Lovenox) 40 mg DAILY SC Last administered on 09/28/16 09:05 ; Admin Dose 40 MG; Start 09/27/16 at 09:00 Chlorthalidone (Hygroton) 25 mg DAILY PO Last administered on 09/28/16 09:04; Admin Dose 25 MG; Start 09/27/16 at 09:00 Enalapril Maleate (Vasotec) 10 mg DAILY PO Last administered on 09/28/16 09:04 ; Admin Dose 10 MG; Start 09/27/16 at 09:00 Pantoprazole (Protonix Tab) 40 mg DAILY@06 PO Last administered on 09/28/16 05 :32; Admin Dose 40 MG; Start 09/27/16 at 06:00 Levofloxacin (Levaquin) 750 mg DAILY@06 PO Last administered on 09/28/16 05:32 ; Admin Dose 750 MG; Start 09/27/16 at 06:00 RUSSEL TARIQ Sep 29, 2016 07:38
[2016-09-29] MEDS ORDERED: MIDAZOLAM 1 MG/ML 2 ML INJ ONE (07:45)
[2016-09-29] MEDS ORDERED: PROPOFOL 20 ML ONE (07:45)
[2016-09-29] MEDS ORDERED: DEXAMETHASONE 4 MG/ML 1 ML INJ ONE (07:45)
[2016-09-29] MEDS ORDERED: FENTAnyl 50 MCG/ML VIAL ONE (07:45)
[2016-09-29] MEDS ORDERED: ONDANSETRON 4 MG INJ ONE (07:45)
[2016-09-29] MEDS ORDERED: ROCURONIUM 50 MG INJ ONE (07:45)
[2016-09-29] MEDS ORDERED: CEFAZOLIN 1 GM INJ ONE (07:45)
[2016-09-29] MEDS ORDERED: NEOSTIGMINE 3 MG/3 ML SYRINGE ONE (07:45)
[2016-09-29] MEDS ORDERED: SUGAMMADEX SODIUM 200 MG/2 ML VIAL IV ONE (07:59)
--- NOTE | 2016-09-29 08:25 | EN ---
Date/Time of Note Date/Time of Note DATE: 09/29/16 TIME: 08:22 Event Note Medicine Medicine Event Note This is a bronchoscopy report. Indications; chronic right middle lobe atelectasis. Bronchoscopy to rule out endobronchial lesion. Postop diagnosis; normal bronchoscopy. Findings on CT imaging of the chest likely indicative of chronic atelectasis/fibrotic changes involving the right middle lobe. Start time was 7:55 AM, finish time was 8 AM. Patient was brought into the OR. Informed consent was obtained. Patient was intubated orally by the anesthesiologist after induction of general anesthesia. Bronchoscope was introduced via the endotracheal tube, distal trachea was normal , gaurav was sharp and well defined. The bronchoscope was then introduced into the right upper lobe, bronchus intermedius, superior segment of the lower lobe, middle lobe and lower lobes they were completely normal and free of any endobronchial pathology. The scope was then introduced into the left mainstem bronchus with evaluation of left upper lobe, lingula, superior segment of the lower lobe and lower lobe there were also completely normal. The scope was then withdrawn. The procedure was well tolerated. An outpatient PET scan is recommended for further evaluation. If the PET scan findings are negative then no further workup is warranted. RUSSEL TARIQ Sep 29, 2016 08:25
[2016-09-29] MEDS: ENALAPRIL 10 MG TAB PO SCH (09:38)
[2016-09-29] MEDS: CHLORTHALIDONE 25 MG TAB PO SCH (09:40)
[2016-09-29] MEDS: ENOXAPARIN 40 MG/0.4 ML SYG SC SCH (09:42)
--- NOTE | 2016-09-29 12:32 | PDOCDIS ---
Discharge Instructions CONDITION Patient Condition: Good HOME CARE INSTRUCTIONS: Special Diet: REGULAR DIET FOLLOW UP/APPOINTMENTS Follow-up Plan Follow up with the lung doctor to arrange for a PET CT scan of your lungs Dandy un seguimiento con el mdico de pulmn para hacer [place] tomografa computarizada de teddy pulmones. Dr Samir Rizo Office Address [address] [facility], [address] [place] [address] Office Follow up with your regular doctor within 2 weeks Dandy un seguimiento con boogie mdico habitual dentro de 2 semanas BRADLEY LEARY MD Sep 29, 2016 12:32
--- NOTE | 2016-09-29 12:35 | DS ---
Date/Time of Note Date/Time of Note DATE: 09/29/16 TIME: 12:33 Discharge Summary Admission/Discharge Info Admit Date/Time Sep 26, 2016 at 15:17 Discharge Date/Time Discharge Diagnosis chronic RML atelectasis of unclear etiology Patient Condition: Good Consults pulmonology Procedures Bronchoscopy 09.29 Indications; chronic right middle lobe atelectasis. Bronchoscopy to rule out endobronchial lesion. Postop diagnosis; normal bronchoscopy. Findings on CT imaging of the chest likely indicative of chronic atelectasis/fibrotic changes involving the right middle lobe. An outpatient PET scan is recommended for further evaluation. If the PET scan findings are negative then no further workup is warranted. NCCT chest 7. IMPRESSION: The study is somewhat limited due to significant breathing artifacts and lack of IV contrast. 1. Approximately 3.3 x 2.9 cm round lobulated mass-like consolidation in the central right middle lobe with post obstructive peripheral subsegmental atelectasis. Recommend bronchoscopy evaluation. 2. Scattered bilateral pleural parenchymal scarring. Subsegmental atelectasis in the left lung base anteriorly. 3. Cluster of small nodules in the periphery of the left upper lobe. 4. Hepatomegaly with fatty infiltration. 5. Punctate nonobstructing right renal stone. Hx of Present Illness CC SOB HPI 56 yo F with pmhx HTN, lifelong nonsmoker presents with several days of SOB and chills. Of note she presented ~6 weeks ago for cough. CXR at that time with ? able R sided infiltrate v lesion and f/u imaging with CT in 3 mos was advised. + nonproductive cough. Pt denies fevers. Does not report weight loss. Hospital Course Pt admitted for w/u of chronic RML atelectasis. Bronch 7. with results as above. Pt had a sputum culture with NRF/josh Sputum AFBs neg x 2 at time of discharge. Pt is to f/u with pulm for outpatient CT/PET to complete lesion w/u Home Meds Active Scripts Famotidine* (Pepcid*) 20 Mg Tablet, 20 MG PO BID for 7 Days, TAB Prov:ARLEEN ROLLINS MD 09/16/15 Famotidine* (Pepcid*) 20 Mg Tablet, 20 MG PO BID for 30 Days, TAB Prov:JENI ROSA DO 12/03/14 Reported Medications Chlorthalidone* (Chlorthalidone*) 25 Mg Tablet, 25 MG PO DAILY, TAB 09/26/16 Omeprazole* (Omeprazole*) 20 Mg Capsule.dr, 20 MG PO DAILY, #30 CAP 09/26/16 Enalapril Maleate* (Enalapril Maleate*) 10 Mg Tablet, 10 MG PO DAILY, TAB 09/26/16 Enalapril Maleate* (Enalapril Maleate*) 10 Mg Tablet, 10 MG PO DAILY, TAB 09/16/15 Hydrochlorothiazide* (Hydrochlorothiazide*) 25 Mg Tab, 25 MG PO DAILY, TAB 12/03/14 Discontinued Reported Medications Albuterol Sulfate* (Ventolin HFA*) 18 Gm Hfa.aer.ad, 2 PUFF IH Q4H Y for WHEEZING AND RESP DISTRESS, EA 02/07/15 Omeprazole* (Omeprazole*) 20 Mg Capsule.dr, 20 MG PO DAILY, CAP 02/07/15 Enalapril Maleate* (Enalapril Maleate*) 5 Mg Tablet, 5 MG PO BID, TAB 10/07/13 Hydrochlorothiazide* (Hydrochlorothiazide*) 25 Mg Tab, 25 MG PO DAILY, TAB 10/07/13 Discontinued Scripts Acetaminophen* (Tylophen*) 500 Mg Capsule, 1 CAP PO Q6H Y for PAIN AND OR ELEVATED TEMP, #20 CAP Prov:JORDAN MILLER PA-C 08/16/16 Amoxicillin/Potassium Clav (Amox-Clav 875-125 mg Tablet) 875-125 mg Tab, 1 TAB PO BID for 7 Days, #14 TAB Prov:JORDAN MILLER PA-C 08/16/16 Amoxicillin-Clavulanate K* (Augmentin*) 500 Mg Tab, 500 MG PO BID for 7 Days, TAB Prov:DALTON STEPHENSON NP 05/15/15 Azithromycin* (Zithromax*) 250 Mg Tablet, 250 MG PO DAILY for 4 Days, TAB Prov:JAMAAL CASAREZ MD 02/07/15 Follow-up Plan Pulm within [address] and PCP within 2 weeks Primary Care Provider Time spent on discharge: > 30 minutes Copies To: CC: RUSSEL TARIQ ELLEN MD Sep 29, 2016 12:35
== END 2016-09-29 14:07 | disposition home or self-care (01) | DRG 206 ==
LOC: E/R 11:29 → MS4 15:17 → PP2 09-27 13:40
PROVIDERS: ADMIT Internal Medicine; ATTEND Internal Medicine
PROC: 0BJ08ZZ Inspection of Tracheobronchial Tree, Via Natural or Artificial Opening Endoscopic (ICD-10-PCS; principal; 2016-09-29 07:30)
DX: J98.11 Atelectasis (principal); J84.10 Pulmonary fibrosis, unspecified; K76.0 Fatty (change of) liver, not elsewhere classified; K21.9 Gastro-esophageal reflux disease without esophagitis; I10 Essential (primary) hypertension; R91.8 Other nonspecific abnormal finding of lung field; R91.1 Solitary pulmonary nodule; N20.0 Calculus of kidney; Z87.891 Personal history of nicotine dependence; Z87.01 Personal history of pneumonia (recurrent)
CPT/HCPCS: 36415; 71010; 71250; 80048; 80053; 82040; 82550; 82553; 84484; 85025; 85610; 85730; 86403; 86480; 87070; 87116; 89220; 93005; 94664; 96365; 96366; 96375; J0690; J1100; J1650; J1956; J2250; J2270; J2405; J2710; J3010

== ENCOUNTER 2016-10-04 14:56 | Outpatient (CLI) | payer OTHER ==
[~2016-10-04] VITALS: Ht 162.6 cm; Wt 86.4 kg
[~2016-10-04 14:56] MED LIST changes: -ACET500C5 PO; -ALBU18HF IH; -AMOX1TAB10 PO; -AMOX1TAB67 PO; -AZIT250T94 PO; +CHLO25TA13 PO; -ENAL5TAB PO; -FAMO-96 PO
[2016-10-04 15:11] VITALS: Ht 162.6 cm; Wt 86.4 kg
[2016-10-04 15:12] VITALS: BP 112/73; PULSE 99; RESP 18
--- NOTE | 2016-10-04 15:44 | PN ---
Date/Time of Note Date/Time of Note DATE: 10/04/16 TIME: 15:39 Outpatient Progress Note Chief Complaint Shortness of breath/pneumonia/lung lesion/hypertension HPI Shortness of breath/patient was recently hospitalized with a shortness of breath , patient was hospitalized for 4 days, no fever chill, no cough expectoration, patient not on any antibiotic at present, patient finished a course, Pneumonia/patient had pneumonitis, patient was treated with antibiotic, Lung lesion/patient has a right middle lobe masslike consolidation, it is 3 x 3 cm multiplied by 2.9 cm lesion, no hemoptysis, no chest pain, patient had bronchoscopy, and also had AFB for sputum, Hypertension/no headache or dizziness, patient feel weakness tiredness, sometimes lightheadedness, Review of Systems Const: No Fever, no chills, no Wt. loss, slight fatigue, normal appetite, no diaphoresis. Eyes: No pain, no discharge, no redness, no visual change, no foreign body. ENT: No pain, no bleeding, no congestion, no sore throat, no dysphagia, no discharge or rhinitis. Lymph: No adenopathy, no tender nodes, no lymphedema. Resp: No SOB, no cough, no sputum, no wheezing, no chest pain. CV: No chest pain, occasional palpitaions, no SNYDER, no PND, no edema. GI: Normal appetite, no pain, no nausea, no vomiting, no diarrhea, no blood, no constipation. : No frequency, no urgency, no dysuria, no hematuria, no flank pain, no discharge, no bleeding. Musc: No bone/joint pain, no back pain, no neck pain, no knee pain, no restricted ROM. Skin: No rash, no skin lesions, no erythema, no laceration, no bruising, no pruritus. Neuro: No URENA, no dizziness, no syncope, no seizure, no focal-weakness. Endo: No polyuria, no polydypsia, no dry-skin, no temp-intolerance. Psych: No hallucinations, no depression, no anxiety, no suicidal ideation. Ext: No edema, no pain, no ulcer, no weakness. Physical Exam Vital Signs Date Time Temp Pulse Resp B/P Pulse Ox O2 Delivery O2 Flow Rate FiO2 10/04/16 15:12 97.9 99 18 112/73 96 Room Air General Appearance: A 56 year-old female who appears well-developed, well- nourished, in no acute distress slightly obese,. HEENT: Head normocephalic, atraumatic. Pupils equal, round, reactive to light and accommodate. Sclerae are no jaundice. Nasal turbinates pink without erythema or nasal discharge. Mucous membranes pink and moist without lesions. Oropharynx clear without any exudate or discharge. NECK: Supple. Trachea midline, No thyromegaly, No cervical lymphadenopathy, No mass, No carotid bruits, No JVD, Carotid pulses 2+ bilaterally. PULMONARY: Clear to auscultaion bilaterally, No retractions, Chest expansion symmetric bilaterally, no rales, no ronchi, no dulness on percussion. CARDIAC: Normal SI and S2, Regular rate and rythm, no murmur, gallop, or rub. GASTROINTESTINAL: Abdomen is soft, non-tender, Non Rigid, No distention, Positive bowel sounds x4 quadrants, Liver normal. SKIN: Warm, dry, no rash, no bruise, no echmosis. EXTREMITIES: Bilateral lower extremities normal, no edema, no phlabitus, pulse palpable, no contracture. MUSCULOSKELETAL: Spine Normal, Non-tender, Normal range of motion, No swelling, no deformity, no clubbing, or cyanosis, the patient has no edema to bilateral lower extremities, dorsalis pedis pulses palpable bilaterally. NEUROLOGIC: The patient is awake, alert, oriented, responding to yes/no questions appropriately, moving all extremities, cranial nerve intact, normal strenght, normal power, normal coordination, normal gait. Allergies Coded Allergies: No Known Allergy (Unverified , 09/26/16) PMH Pneumonitis/hypertension/obesity/lung lesion Social Hx No smoking, no drinking, Family Hx Noncontributory, Patient History: FH: cancer 32 MOTHER Hypertension 32 MOTHER Assessment/Plan Impression Shortness of breath improved Pneumonitis improving Lung lesion workup in process Hypertension Plan Patient education done about a bowel problem, patient was seen by pulmonary, patient had completed a course of antibiotic, Patient was advised to get a PET scan, Patient encouraged to follow with the primary care physician, We will request a PET scan authorization, Medications Home Meds Reported Medications Chlorthalidone* (Chlorthalidone*) 25 Mg Tablet, 25 MG PO DAILY, TAB 09/26/16 Omeprazole* (Omeprazole*) 20 Mg Capsule.dr, 20 MG PO DAILY, #30 CAP 09/26/16 Enalapril Maleate* (Enalapril Maleate*) 10 Mg Tablet, 10 MG PO DAILY, TAB 09/16/15 Hydrochlorothiazide* (Hydrochlorothiazide*) 25 Mg Tab, 25 MG PO DAILY, TAB 12/03/14 Discontinued Reported Medications Enalapril Maleate* (Enalapril Maleate*) 10 Mg Tablet, 10 MG PO DAILY, TAB 09/26/16 Discontinued Scripts Famotidine* (Pepcid*) 20 Mg Tablet, 20 MG PO BID for 7 Days, TAB Prov:ARLEEN ROLLINS MD 09/16/15 Famotidine* (Pepcid*) 20 Mg Tablet, 20 MG PO BID for 30 Days, TAB Prov:JENI ROSA DO 12/03/14 HANG WEINER MD Oct 04, 2016 15:44
== END 2016-10-04 17:00 | disposition home or self-care (01) ==
LOC: DCC 14:56
PROVIDERS: ATTEND Internal Medicine
DX: J18.9 Pneumonia, unspecified organism (principal); R06.02 Shortness of breath; I10 Essential (primary) hypertension; R91.1 Solitary pulmonary nodule

== ENCOUNTER 2016-10-18 11:32 | Outpatient (CLI) | payer OTHER ==
[~2016-10-18] VITALS: Ht 162.6 cm; Wt 87.3 kg
[2016-10-18 11:27] VITALS: BP 120/76; PULSE 87; RESP 18; Ht 162.6 cm; Wt 87.3 kg
--- NOTE | 2016-10-18 12:29 | PN ---
Date/Time of Note Date/Time of Note DATE: 10/18/16 TIME: 12:26 Outpatient Progress Note Chief Complaint Lung lesion/hypertension HPI Lung lesion/patient has a questionable lung lesion, patient still has minimal cough, no fever chill, no weight loss, Hypertension/no headache or dizziness, no nausea or vomiting, Review of Systems Const: No Fever, no chills, no Wt. loss, no Fatigue, normal appetite, no diaphoresis. Eyes: No pain, no discharge, no redness, no visual change, no foreign body. ENT: No pain, no bleeding, no congestion, no sore throat, no dysphagia, no discharge or rhinitis. Lymph: No adenopathy, no tender nodes, no lymphedema. Resp: No SOB, no cough, no sputum, no wheezing, no chest pain. CV: No chest pain, no palpitaions, no SNYDER, no PND, no edema. GI: Normal appetite, no pain, no nausea, no vomiting, no diarrhea, no blood, no constipation. : No frequency, no urgency, no dysuria, no hematuria, no flank pain, no discharge, no bleeding. Musc: no back pain, minimal neck pain, no knee pain, no restricted ROM. Skin: No rash, no skin lesions, no erythema, no laceration, no bruising, no pruritus. Neuro: No URENA, no dizziness, no syncope, no seizure, no focal-weakness. Endo: No polyuria, no polydypsia, no dry-skin, no temp-intolerance. Psych: No hallucinations, no depression, no anxiety, no suicidal ideation. Ext: No edema, no pain, no ulcer, no weakness. Physical Exam Vital Signs Date Time Temp Pulse Resp B/P Pulse Ox O2 Delivery O2 Flow Rate FiO2 10/18/16 11:27 97.9 87 18 120/76 95 Room Air General Appearance: A 56 year-old female who appears well-developed, well- nourished, in no acute distress. HEENT: Head normocephalic, atraumatic. Pupils equal, round, reactive to light and accommodate. Sclerae are no jaundice. Nasal turbinates pink without erythema or nasal discharge. Mucous membranes pink and moist without lesions. Oropharynx clear without any exudate or discharge. NECK: Supple. Trachea midline, No thyromegaly, No cervical lymphadenopathy, No mass, No carotid bruits, No JVD, Carotid pulses 2+ bilaterally. PULMONARY: Clear to auscultaion bilaterally, No retractions, Chest expansion symmetric bilaterally, no rales, no ronchi, no dulness on percussion. CARDIAC: Normal SI and S2, Regular rate and rythm, no murmur, gallop, or rub. GASTROINTESTINAL: Abdomen is soft, non-tender, Non Rigid, No distention, Positive bowel sounds x4 quadrants, Liver normal. SKIN: Warm, dry, no rash, no bruise, no echmosis. EXTREMITIES: Bilateral lower extremities normal, no edema, no phlabitus, pulse palpable, no contracture. MUSCULOSKELETAL: Spine Normal, Non-tender, Normal range of motion, No swelling, no deformity, no clubbing, or cyanosis, the patient has no edema to bilateral lower extremities, dorsalis pedis pulses palpable bilaterally. NEUROLOGIC: The patient is awake, alert, oriented, responding to yes/no questions appropriately, moving all extremities, cranial nerve intact, normal strenght, normal power, normal coordination, normal gait. Allergies Coded Allergies: No Known Allergy (Unverified , 09/26/16) Social Hx No change Family Hx No change Patient History: FH: cancer 32 MOTHER Hypertension 32 MOTHER Assessment/Plan Impression Lung lesion Hypertension Plan PET scan of the chest noted, reviewed, and discussed with the patient, will send the patient to pulmonary, for further evaluation, Patient advised to follow with the primary care physician, and patient to aggressively monitor the lesion, and follow with the primary care physician or regular basis, patient has minimal neck discomfort, will add as needed Advil 1 or 2 tablets with food, Medications Home Meds Reported Medications Chlorthalidone* (Chlorthalidone*) 25 Mg Tablet, 25 MG PO DAILY, TAB 09/26/16 Omeprazole* (Omeprazole*) 20 Mg Capsule.dr, 20 MG PO DAILY, #30 CAP 09/26/16 Enalapril Maleate* (Enalapril Maleate*) 10 Mg Tablet, 10 MG PO DAILY, TAB 09/16/15 Hydrochlorothiazide* (Hydrochlorothiazide*) 25 Mg Tab, 25 MG PO DAILY, TAB 12/03/14 HANG WEINER MD Oct 18, 2016 12:29
== END 2016-10-18 16:28 | disposition home or self-care (01) ==
LOC: DCC 11:32
PROVIDERS: ATTEND Internal Medicine
DX: R91.1 Solitary pulmonary nodule (principal); I10 Essential (primary) hypertension

== ENCOUNTER 2017-04-23 16:59 | Emergency (ER) | END 2017-04-23 20:26 | disposition home or self-care (01) ==

== ENCOUNTER 2017-08-22 10:04 | Emergency (ER) | END 2017-08-22 10:36 | disposition home or self-care (01) ==

== ENCOUNTER 2017-11-21 10:04 | Emergency (ER) | END 2017-11-21 12:46 | disposition home or self-care (01) ==

== ENCOUNTER 2018-07-31 12:42 | Emergency (ER) | payer OTHER ==
[~2018-07-31] VITALS: Ht 165.1 cm; Wt 86.2 kg
[~2018-07-31 12:42] MED LIST changes: +AMOX1TAB10 PO; +AMOX500C2 PO; +BENZ-6 PO; -CHLO25TA13 PO; +CHLO25TA2 PO; +D-ME473S2 PO; -HYD25 PO; +HYDR-4011 PO; +HYDR25TA6 PO; +IBUP-1542 PO; +IBUP-1545 PO; +IBUP800T48 PO; +PENI500T PO; +TYL500 PO
[2018-07-31 12:52] VITALS: Ht 165.1 cm; Wt 86.2 kg
[2018-07-31] MEDS ORDERED: KETOROLAC 30 MG INJ IM STA (15:08)
[2018-07-31] MEDS ORDERED: IBUP-1561 PO (17:10)
[2018-07-31 17:29] VITALS: BP 150/85; PULSE 89; RESP 20
--- NOTE | 2018-07-31 17:46 | ERD ---
ER Documentation Chief Complaint Chief Complaint left knee pain x 15 days HPI 58-year-old female patient with a past medical history of hypertension presents the ED complaining of left knee pain that started about 15 days ago. Denies any trauma or injuries. Patient describes her pain as achy and rates it an 8 out of 10. Denies any fever, chills, loss sensation loss of range of motion. Denies any chest pain, shortness of breath, nausea, vomiting, diarrhea, loss of sensation, loss of range of motion, neck stiffness. ROS All systems reviewed and are negative except as per history of present illness. Medications Home Meds Active Scripts Ibuprofen* (Motrin*) 400 Mg Tab, 400 MG PO Q6, #30 TAB Prov:TORI ORTEGA PA-C 07/31/18 Ibuprofen* (Motrin*) 600 Mg Tab, 600 MG PO Q6, #30 TAB Prov:BREANA LUNSFORD PA-C 04/15/18 Acetaminophen* (Tylenol*) 500 Mg Tab, 500 MG PO Q4H PRN for PAIN, #30 TAB Prov:LOLIS HOLDEN DO 11/21/17 Ibuprofen* (Ibuprofen*) 800 Mg Tab, 800 MG PO TID PRN for HEADACHE, #30 TAB Prov:LOLIS HOLDEN DO 11/21/17 Penicillin V Potassium* (Penicillin V K*) 500 Mg Tab, 500 MG PO TID for 10 Days, #30 TAB Prov:LOLIS HOLDEN DO 11/21/17 Ibuprofen* (Motrin*) 800 Mg Tab, 800 MG PO Q6, #30 TAB Prov:RICKY BULLARD PA-C 08/22/17 Dextromethorphan Hb-Promethazine Hcl* (Promethazine DM* Syrup) 473 Ml Syrup, 5 ML PO Q6 PRN for COUGH, #100 ML Prov:RICKY BULLARD PA-C 08/22/17 Amoxicillin/Potassium Clav (Amox-Clav 875-125 mg Tablet) 875-125 mg Tab, 1 TAB PO BID for 7 Days, #14 TAB Prov:RICKY BULLARD PA-C 08/22/17 Benzonatate* (Tessalon Perle*) 100 Mg Capsule, 100 MG PO Q8H PRN for COUGH, #30 CAP Prov:RICKY BULLARD PA-C 08/22/17 Hydrocodone/Acetaminophen ([place] 5-325 Tablet) 1 Each Tablet, 1 EACH PO BID, #20 TAB Prov:NAHOMY BARRAGAN MD 04/23/17 Amoxicillin* (Amoxicillin*) 500 Mg Cap, 500 MG PO TID for 7 Days, CAP Prov:NAHOMY BARRAGAN MD 04/23/17 Reported Medications Chlorthalidone* (Chlorthalidone*) 25 Mg Tablet, 25 MG PO DAILY, TAB 09/26/16 Omeprazole* (Omeprazole*) 20 Mg Capsule.dr, 20 MG PO DAILY, #30 CAP 09/26/16 Enalapril Maleate* (Enalapril Maleate*) 10 Mg Tablet, 10 MG PO DAILY, TAB 09/16/15 Hydrochlorothiazide* (Hydrochlorothiazide*) 25 Mg Tab, 25 MG PO DAILY, TAB 12/03/14 Allergies Allergies: Coded Allergies: No Known Allergy (Unverified , 08/22/17) PMhx/Soc History of Surgery: No Anesthesia Reaction: No Hx Neurological Disorder: No Hx Respiratory Disorders: No Hx Cardiac Disorders: No Hx Psychiatric Problems: No Hx Miscellaneous Medical Probl: No Hx Alcohol Use: No Hx Substance Use: No Hx Tobacco Use: No Smoking Status: Never smoker FmHx Family History: No diabetes, No coronary disease Physical Exam Vitals Vital Signs Date Temp Pulse Resp B/P (MAP) Pulse Ox O2 O2 Flow FiO2 Time Delivery Rate 07/31/18 89 20 150/85 97 Room Air 17:29 (106) 07/31/18 97.8 87 19 148/83 96 12:52 (104) Physical Exam Const: [id number], well-nourished. In no acute distress. Head: Atraumatic, normocephalic Eyes: Normal Conjunctiva without injection ENT: Normal external ear, nose and mouth. Neck: Full range of motion. No meningismus. Resp: Clear to auscultation bilaterally. No wheezing, rhonchi, rales, or crackles. No accessory muscle use. No retractions. Cardio: Regular rate and rhythm, no murmurs Skin: No petechiae or rashes Back: No midline tenderness. No CVA tenderness. Ext: No cyanosis, or edema. Cap refill less than 2 seconds. Distal pulses intact bilaterally. Tender to palpation of the left patella. Full range of motion with flexion, extension. No warmth to touch, no erythema. Neur: Awake and alert. Normal gait and coordination. Muscle strength 5/5. Sensation intact bilaterally. Psych: Normal Mood and Affect Results 24 hrs Current Medications Medications Dose Sig/Lise Start Time Status Last (Trade) Ordered Route PRN Stop Time Admin Dose Reason Admin Ketorolac 30 mg ONCE STAT 07/31/18 DC 07/31/18 Tromethamine IM 15:08 15:20 (Toradol) 07/31/18 15:10 Procedures/MDM 58-year-old female patient with no significant past medical history presents to ED complaining of left knee pain that started 15 days ago. Patient is afebrile and nontoxic-appearing. IMPRESSION: 1. No acute bony abnormality. 2. Minimal osseous spurring within the patella which can be seen with chondromalacia patella. 2. Distal quadriceps enthesopathy. Patient is placed in an hafsa wrap of left knee. Patient is ambulating without any difficulty. Splint Assessment: Neurovascularly intact pre and post splint placement with good fit. 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 Patient's extremity symptoms have stabilized while they have been evaluated in the department and are appropriate for outpatient follow up. No evidence of fractures, dislocations, compartment syndrome, neurologic injury, vascular injury, open joint, open fracture, tendon laceration, septic arthritis, osteomyelitis, DVT, foreign body, or other emergent conditions. Diagnosis: Knee Pain Discharge medications: Ibuprofen Follow up with primary care physician in 1-2 days for a referral to see an orthopedic physician if symptoms do not improve. Instructed patient to return to the ED sooner for any worsening symptoms. Patient's questions were answered. Patient is hemodynamically stable. Patient understood and agreed with discharge plan. Patient discharged stable. Disclaimer: Inadvertent spelling and grammatical errors are likely due to EHR/dictation software use and do not reflect on the overall quality of patient care. Also, please note that the electronic time recorded on this note does not necessarily reflect the actual time of the patient encounter. Departure Diagnosis: Primary Impression: Knee pain Chronicity: acute Laterality: left Qualified Codes: M25.562 - Pain in left knee Condition: Stable Patient Instructions: Knee Pain, Uncertain Cause Referrals: [facility] (PCP) COMM[facility]ITY CLINICS YOU HAVE RECEIVED A MEDICAL SCREENING EXAM AND THE RESULTS INDICATE THAT YOU DO NOT HAVE A CONDITION THAT REQUIRES URGENT TREATMENT IN THE EMERGENCY DEPARTMENT. FURTHER EVALUATION AND TREATMENT OF YOUR CONDITION CAN WAIT UNTIL YOU ARE SEEN IN YOUR DOCTORS OFFICE WITHIN THE NEXT 1-2 DAYS. IT IS YOUR RESPONSIBILITY TO MAKE AN APPOINTMENT FOR FOLOW-UP CARE. IF YOU HAVE A PRIMARY DOCTOR --you should call your primary doctor and schedule an appointment IF YOU DO NOT HAVE A PRIMARY DOCTOR YOU CAN CALL OUR PHYSICIAN REFERRAL HOTLINE AT IF YOU CAN NOT AFFORD TO SEE A PHYSICIAN YOU CAN CHOSE FROM THE FOLLOWING [facility] [address] [facility]. [facility] [address] [facility] [address] [facility] [address] [facility] [address] [facility]. [facility] [address] [facility]. [facility] YOU HAVE RECEIVED A MEDICAL SCREENING EXAM AND THE RESULTS INDICATE THAT YOU DO NOT HAVE A CONDITION THAT REQUIRES URGENT TREATMENT IN THE EMERGENCY DEPARTMENT. FURTHER EVALUATION AND TREATMENT OF YOUR CONDITION CAN WAIT UNTIL YOU ARE SEEN IN YOUR DOCTORS OFFICE WITHIN THE NEXT 1-2 DAYS. IT IS YOUR RESPONSIBILITY TO MAKE AN APPOINTMENT FOR FOLOW-UP CARE. IF YOU HAVE A PRIMARY DOCTOR --you should call your primary doctor and schedule and appointment IF YOU DO NOT HAVE A PRIMARY DOCTOR YOU CAN CALL OUR PHYSICIAN REFERRAL HOTLINE AT . IF YOU CAN NOT AFFORD TO SEE A PHYSICIAN YOU CAN CHOSE FROM THE FOLLOWING [facility] INSTITUTIONS: [facility] [address] [place] [address] [facility] [address] [place] [address] [facility] + [facility] [address] [place] [address] [facility] URGENT CARE/SPECIALTIES Additional Instructions: Llame al doctor MAANA y maude [place] QUANG PARA DENTRO DE 2-3 POSADAS.Dgale a la secretaria que nosotros le instruimos hacer esta quang.Avise o llame si boogie condicin se empeora antes de la quang. Regresa aqui si peor o no mejor. TORI ORTEGA PA-C July 31, 2018 17:46
== END 2018-07-31 17:31 | disposition home or self-care (01) ==
LOC: FTE 12:42
DX: M25.562 Pain in left knee (principal); I10 Essential (primary) hypertension
CPT/HCPCS: 73562; J1885; 96372

== ENCOUNTER 2018-08-21 12:05 | Emergency (ER) | payer OTHER ==
[~2018-08-21] VITALS: Ht 160 cm; Wt 85.1 kg
[~2018-08-21 12:05] MED LIST changes: +IBUP-1561 PO
[2018-08-21 12:10] VITALS: Ht 160 cm; Wt 85.1 kg
[2018-08-21] MEDS ORDERED: NAPR-985 PO (16:01)
[2018-08-21 16:22] VITALS: BP 149/81; PULSE 75
--- NOTE | 2018-08-21 21:18 | ERD ---
ER Documentation Chief Complaint Chief Complaint LEFT KNEE AND LOWER LEG PAIN FOR FEW WEEKS. AMBULATORY. HPI 58-year-old female with no significant past medical history presents to the [facility] department complaining of left knee and left calf pain intermittently for the past 1 month. She states her pain is worse with walking. She denies any falls or trauma or other symptoms at this time. She took mzqm-yda-ewkqosp medication with some relief. Patient was seen here recently and had x-rays of the left knee which showed no significant acute abnormalities. ROS All systems reviewed and are negative except as per history of present illness. Medications Home Meds Active Scripts Naproxen* (Naprosyn*) 500 Mg Tablet, 500 MG PO BID PRN for PAIN AND/OR INFLAMMATION, #30 TAB Prov:DARYL KUO PA-C 08/21/18 Ibuprofen* (Motrin*) 400 Mg Tab, 400 MG PO Q6, #30 TAB Prov:TORI ORTEGA PA-C 07/31/18 Ibuprofen* (Motrin*) 600 Mg Tab, 600 MG PO Q6, #30 TAB Prov:BREANA LUNSFORD PA-C 04/15/18 Acetaminophen* (Tylenol*) 500 Mg Tab, 500 MG PO Q4H PRN for PAIN, #30 TAB Prov:LOLIS HOLDEN DO 11/21/17 Ibuprofen* (Ibuprofen*) 800 Mg Tab, 800 MG PO TID PRN for HEADACHE, #30 TAB Prov:LOLIS HOLDEN DO 11/21/17 Penicillin V Potassium* (Penicillin V K*) 500 Mg Tab, 500 MG PO TID for 10 Days, #30 TAB Prov:LOLIS HOLDEN DO 11/21/17 Ibuprofen* (Motrin*) 800 Mg Tab, 800 MG PO Q6, #30 TAB Prov:RICKY BULLARD PA-C 08/22/17 Dextromethorphan Hb-Promethazine Hcl* (Promethazine DM* Syrup) 473 Ml Syrup, 5 ML PO Q6 PRN for COUGH, #100 ML Prov:RICKY BULLARD PA-C 08/22/17 Amoxicillin/Potassium Clav (Amox-Clav 875-125 mg Tablet) 875-125 mg Tab, 1 TAB PO BID for 7 Days, #14 TAB Prov:RICKY BULLARD PA-C 08/22/17 Benzonatate* (Tessalon Perle*) 100 Mg Capsule, 100 MG PO Q8H PRN for COUGH, #30 CAP Prov:RICKY BULLARD PA-C 08/22/17 Hydrocodone/Acetaminophen ([place] 5-325 Tablet) 1 Each Tablet, 1 EACH PO BID, #20 TAB Prov:NAHOMY BARRAGAN MD 04/23/17 Amoxicillin* (Amoxicillin*) 500 Mg Cap, 500 MG PO TID for 7 Days, CAP Prov:NAHOMY BARRAGAN MD 04/23/17 Reported Medications Chlorthalidone* (Chlorthalidone*) 25 Mg Tablet, 25 MG PO DAILY, TAB 09/26/16 Omeprazole* (Omeprazole*) 20 Mg Capsule.dr, 20 MG PO DAILY, #30 CAP 09/26/16 Enalapril Maleate* (Enalapril Maleate*) 10 Mg Tablet, 10 MG PO DAILY, TAB 09/15/ Hydrochlorothiazide* (Hydrochlorothiazide*) 25 Mg Tab, 25 MG PO DAILY, TAB 12/03/14 Allergies Allergies: Coded Allergies: No Known Allergy (Unverified , 08/22/17) PMhx/Soc Medical and Surgical Hx: pt denies Medical Hx History of Surgery: No Anesthesia Reaction: No Hx Neurological Disorder: No Hx Respiratory Disorders: No Hx Cardiac Disorders: No Hx Psychiatric Problems: No Hx Miscellaneous Medical Probl: No Hx Alcohol Use: No Hx Substance Use: No Hx Tobacco Use: No FmHx Family History: No diabetes Physical Exam Vitals Vital Signs Date Temp Pulse Resp B/P (MAP) Pulse Ox O2 O2 Flow FiO2 Time Delivery Rate 08/21/18 75 149/81 16:22 (103) 08/21/18 97.8 85 18 150/98 94 12:10 (115) Physical Exam Const: No acute distress Head: Atraumatic Eyes: Normal Conjunctiva ENT: Normal External Ears, Nose and Mouth. Neck: Full range of motion. No meningismus. Resp: Clear to auscultation bilaterally Cardio: Regular rate and rhythm, no murmurs Skin: No petechiae or rashes Back: No midline or flank tenderness Ext: Tenderness palpation of the left anterior knee with limited range of motion secondary to pain. Mild left calf tenderness. Patient is maida rovascularly intact to the left lower extremity. Neur: Awake and alert Psych: Normal Mood and Affect Results 24 hrs [place] [id number] Radiology Main Line: [phone] DIAGNOSTIC IMAGING REPORT Patient: ROMINA DAVILA : 1960 Age: 58 Sex: F MR #: [id number] DOS: 08/21/18 0000 Ordering MD: DARYL KUO PA-C Location: [facility] Room/Bed: PROCEDURE: US Lower extremity venous. CLINICAL INDICATION: Left leg/knee pain TECHNIQUE: Multiple sonographic images of the left lower extremity deep venous system was obtained utilizing grayscale, color-flow, compressive sonography and doppler imaging with augmentation. COMPARISON: 03/18/2013 FINDINGS: There is normal compressibility / flow within the left common femoral, femoral and popliteal veins. The visualized deep veins of the calf are unremarkable. IMPRESSION: No sonographic evidence for deep venous thrombosis in the left lower extremity. RPTAT: EE .Cristi Lara MD, MD Date Time Electronically viewed and signed by .Cristi Lara MD, MD on 08/21/2018 15:47 .O/ CC: DARYL KUO PA-C [id number] Procedures/MDM 58-year-old female presents to the emergency department complaining of left leg pain. History, physical examination, work-up most consistent with left leg sprain and arthritis of the left knee. Ultrasound of the left lower extremity showed no evidence of DVT interpreted by the radiologist. No need to repeat x- ray at this time as patient had recent x-ray completed and has had no new trauma. Patient's extremity symptoms have stabilized while they have been evaluated in the department and are appropriate for outpatient follow up. No evidence of compartment syndrome, neurologic injury, vascular injury, open joint, open fracture, tendon laceration, or foreign body. Patient is advised to have 24 to 48-hour follow-up with orthopedic physician and return to the department immediately for any new or worsening or concerning symptoms. She understands and agrees with plan. Patient's blood pressure was elevated (>120/80) but appears stable without evidence of hypertension emergency or urgency. The patient is to follow-up and pursue outpatient monitoring and therapy with their primary care physician within 1 week and return immediately if they have any new, worsening, or concerning symptoms. Departure Diagnosis: Primary Impression: Left leg pain Condition: Fair Patient Instructions: Reducing Knee Pain and Swelling Referrals: [facility] 7 a.m.- 11 p.m. Every Day of the Week NO APPOINTMENT OR AUTHORIZATION NEEDED [facility] () Usted se aldridge hecho un examen mdico de control que le indica que no est en [place] condicin que requiera tratamiento urgente en el Departamento de Emergencia. Un estudio ms profundo y el tratamiento de frausto condicin pueden esperar sin ningn riesgo hasta que usted sea atendida/o en el consultorio de frausto mdico o [place] clnica. Es responsabilidad suya arreglar [place] cody para el seguimiento del salinas. MANEJO DE CONDICIONES NO URGENTES EN EL FUTURO 1) Si usted tiene un mdico de atencin primaria: Usted debera llamar a frausto mdico de atencin primaria antes de venir al departamento de emergencia. Despus de las horas de consultorio, frausto doctor o frausto asociado/a est disponible por telfono. El mdico o enfermero de david en el servicio telefnico puede asesorarle por eufemia medio para atender el problema, o salinas contrario se puede programar [place] cody. 2) Si usted no tiene un mdico de atencin primaria: Llame al mdico o clnica de referencia que aparece abajo sallie las horas de consultorio para hacer [place] cody para que le vean. CLINICAS: [facility] [phone] [facility] [phone] [address] [facility]. [facility] [phone] [place] [id number] [phone] [facility] [phone] [address] [facility] [phone] [address] [facility] Hours: Mon-Sat 9:00 AM - 5:00 PM Additional Instructions: Specialist:Usted tiene [place] condicin mdica que requiere que pool a un especialista dentro de los prximos 1-2 peguero.POR FAVOR,CON FRAUSTO SEGUIMIENTO DE PRIMARIA PHSICIAN refferal. SI USTED NO TIENE UN MDICO GENERAL Y / O USTED NO PUEDE PAGAR wali a un mdico,los siguientes sumner RECURSOS sido suministrado a usted. ES FRAUSTO RESPONSABILIDAD PARA SER VISTOS POR EL ESPECIALISTA: ORTHOPEDICS DARYL KUO PA-C Aug 21, 2018 21:18
== END 2018-08-21 16:23 | disposition home or self-care (01) ==
LOC: FTE 12:05
DX: M79.662 Pain in left lower leg (principal)
CPT/HCPCS: 93971; Z7502

== ENCOUNTER 2018-11-16 13:01 | Emergency (ER) | payer OTHER ==
[~2018-11-16] VITALS: Wt 85.8 kg
[~2018-11-16 13:01] MED LIST changes: +CYCL10TA7 PO; +LACR35O RIGHT EYE; +NAPR-985 PO; -OMEP20CA16 PO; +OMEP20CA17 PO; +PRED20TA PO; +VALA500T4 PO
[2018-11-16 17:25] VITALS: BP 144/82; PULSE 68; RESP 20
== END 2018-11-16 18:04 | disposition home or self-care (01) ==
LOC: E/R 13:01
DX: G51.0 Bell's palsy (principal); I10 Essential (primary) hypertension
CPT/HCPCS: 70450; 80048; 85025; Z7502

== ENCOUNTER 2019-01-01 12:32 | Emergency (ER) | payer OTHER ==
[~2019-01-01] VITALS: Ht 165.1 cm; Wt 84.9 kg
[2019-01-01 12:46] VITALS: Ht 165.1 cm; Wt 84.9 kg
[2019-01-01] MEDS ORDERED: KETOROLAC 30 MG INJ IM STA (13:25)
[2019-01-01] MEDS ORDERED: DEXAMETHASONE 10 MG/ML 1 ML INJ IM ONE (13:30)
== END 2019-01-01 13:58 | disposition home or self-care (01) ==
LOC: FTE 12:32
DX: M54.41 Lumbago with sciatica, right side (principal); M25.561 Pain in right knee; M25.562 Pain in left knee; G89.29 Other chronic pain
CPT/HCPCS: 96372; J1100; J1885; Z7502